=== PATIENT | male | born 1960 | race Caucasian/White ===

== ENCOUNTER 2017-10-08 10:01 | Inpatient (IN) | payer OTHER, SELFPAY ==
[2017-10-08 10:02] VITALS: BP 127/80; PULSE 99; RESP 16; TEMP 37; O2SAT 100; BMI 23.4
[2017-10-08] MEDS: 0.9% Normal Saline 1,000 ML 1000 ML IV ×2 (10:31→12:31)
[2017-10-08] MEDS: Ondansetron 4 MG/2 ML Vial IV ×3 (10:31→23:33)
[2017-10-08 10:55] LABS: Color, Urine Yellow (Yellow); Glucose, Dipstick Normal (Normal); Ketone-Dipstick 5 mg/dl (Negative); Leukocyte Esterase-Dipstick 25 /ul (Negative); Nitrite-Dipstick Negative (Negative); Occult Blood-Urine 250 /ul (Negative); Protein-Dipstick 30 mg/dl (Negative); Urine Bilirubin Dipstick Negative (Negative); Urine Clarity Sl. Cloudy (Clear); Urine Urobilinogen 1 mg/dl (Normal)
--- NOTE | 2017-10-08 10:57 | ED.VISSUMM ---
- ER Visit Summary Date of Service: 10/08/17 Chief Complaint: Abdominal pain with nausea, vomiting diarrhea that started last evening/early this morning History of Present Illness: The patient is a 57 M 3 of hypercholesterolemia status post laparoscopic robotic nerve sparing radical prostatectomy approximately 2 weeks ago presents because of abdominal pain that was followed by nausea, vomiting diarrhea. He was on Macrobid prior to procedure. He does report intermittent hematuria for the past couple of days. He denies hematemesis, melena hematochezia. He does report hot cold sensation with chills and sweats. No documented fever. He denies any redness or drainage from his port sites. Past medical history hypercholesterolemia and Alana acquired pneumonia. Past surgical history remarkable for recent laparoscopic robotic assisted nerve sparing radical prostatectomy. Physical Examination: Patient appears pale. Vital signs are remarkable for slight elevation blood pressure 127/80. HEENT exam is marked for dry tongue and mucosa. Heart is regular without murmur, gallop or rub. S1 and S2 are normal. Lungs are clear to auscultation with good movement of air bilaterally. Abdomen slightly distended tympanitic with decreased bowel sounds. All 5 port sites were examined without erythema, warmth, induration, fluctuance or drainage noted. He does have appropriate postoperative abdominal discomfort especially around the port sites. Neuro exam is nonfocal. Test Results: H&H 12.9 and 38.3. Glucose is 158 with a BUN of 24 creatinine 0.9. Macro urinalysis reveals leukoesterase and blood 25 and 250 and ketones 5. Micro reveals 5 WBCs greater than 100 RBCs and 3+ bacteria. UA analysis was discussed with patient's urologist. He recommended not giving antibiotics and await urine culture results since this may represent colonization from indwelling Lynn. Emergency Department Course and Treatment: IV was established and he will receive 1 L of normal saline wide open and 4 mg of Zofran. Once his nausea is improved will administer Imodium for his diarrhea. Since he was on Macrobid there is no concern at this point for drug-induced diarrhea and less likely concern for pseudomembranous enterocolitis. Treatment Plan: Since Dr. Jerez is unable to tolerate p.o. fluids and has not urinated after 2-3 L of normal saline will admit to hospital Disposition: Admit MedSurg unit Impression: 1. Nausea, vomiting diarrhea 2. Moderate to severe dehydration 3. Hyperglycemia 4. Prerenal azotemia This note was generated with eMindful dictation software. It may contain incorrect words, spelling, and punctuation that were not noted in review of the chart prior to signing ED Disposition - Plan for ED Patient: Chief Complaint: Nausea/Vomiting/Diarrhea Referrals: Lissy Mcmanus DO [Primary Care Provider] -
[2017-10-08 11:02] LABS: Red Blood Cells-Urine > 100 SEEN /hpf (0-5); White Blood Cells 0-5 SEEN /hpf (0-5)
[2017-10-08 11:02] LABS: Absolute Lymphocyte Count 0.56 X10^3/ul (0.83-4.51); Absolute Neutrophil Count 9.8 X10^3/uL (2.0-7.7); Basophil# 0.01 X10^3/uL; Basophil% 0.1 % (0-1); Hematocrit 38.3 % (40-54); Hemoglobin 12.9 g/dl (13.0-16.5); Lymphocyte # 0.56 X10^3/ul (4.0); Lymphocyte % 5.3 % (19-41); Mean Corp Hgb Conc 33.7 g/gl (32-36); Mean Corpuscular Hgb 29.3 pg (27.0-32.0); Mean Corpuscular Volume 86.8 fL (80-94); Mean Platelet Vol. 9.5 fl (6.2-12.0); Monocyte# 0.25 X10^3/uL; Monocyte% 2.4 % (0-10); Neutrophil # 9.75 X10^3/uL (2.7-7.7); Platelet Count 373 K/mm3 (150-450); RBC Distribution Width CV 13.5 % (11.6-14.6); RBC Distribution Width SD 43.1 fl (35.1-43.9); Red Blood Count 4.41 M/mm3 (4.6-6.2); White Blood Count 10.6 K/mm3 (4.4-11.0)
[2017-10-08 11:03] LABS: Bacteria 3+ /hpf (None Seen); Squamous Epithelial Cells - UA 0-5 SEEN /hpf (0-5)
[2017-10-08 11:03] LABS: Anion Gap 10 (5-15); BUN 24 mg/dL (7-18); BUN/Creat Ratio 26.5 RATIO (10-20); Calcium,Total 9.7 mg/dL (8.5-10.1); Chloride 104 mmol/L (98-107); EST Glomerular Filtration Rate 93 mL/min (>60); Est Glom Filt Rate - Afr Amer 112 mL/min (>60); Estimated Creatinine Clearance 92.74 ml/min; Glucose 158 mg/dL (74-106); Potassium 3.6 mmol/L (3.5-5.1); Sodium Level 138 mmol/L (136-145)
[2017-10-08 11:04] LABS: Differential Indicated SCAN CRITERIA MET; POSITIVE COUNT NO; POSITIVE DIFFERENTIAL YES; POSITIVE MORPHOLOGY NO
[2017-10-08 11:04] LABS: Mucous, Urine 2+ /hpf (<or=2+)
[2017-10-08 12:35] VITALS: BP 131/75; PULSE 87; RESP 14; O2SAT 99
[2017-10-08 14:00] VITALS: BP 128/72; PULSE 87; RESP 16; TEMP 37.5; O2SAT 100
[2017-10-08 14:23] VITALS: BMI 23.5
[2017-10-08 14:25] VITALS: BP 134/78; PULSE 72; RESP 15; TEMP 37.5; O2SAT 100
--- NOTE | 2017-10-08 14:42 | CT_ITS ---
STUDY: CT ABDOMEN AND PELVIS WITHOUT CONTRAST REASON FOR EXAM: Male, 57 years old. RADICAL PROSTECTOMY X 2 WKS AGO, SEVERE ABD PAIN, N/V, DEHYDRATION RADIATION DOSAGE (If Supplied By Facility): CTDIvol = ( 8.48 ) mGy, DLP = ( 478.74 ) mGycm TECHNIQUE: Transaxial images were obtained from the dome of the diaphragm to the symphysis pubis without oral contrast, and without intravenous contrast. Sagittal and coronal images were reconstructed. Individualized dose optimization techniques were used for this CT. COMPARISON: 07.21.17 FINDINGS: The visualized lung bases are unremarkable. The visualized portions of the heart are within normal limits. Normal liver. Normal gallbladder and extrahepatic biliary system. Normal spleen. Normal pancreas. Normal bilateral adrenal glands. Normal right kidney. Normal left kidney. Normal visualized stomach. There is a paralytic ileus of the small intestine with mild gaseous distention. There is wall thickening of the descending and rectosigmoid colon. There is also questionable inflammation around the colon. This can suggest a colitis. This can also suggest incomplete distension of the colon. The appendix is visualized and appears normal. Normal abdominal aorta. Normal inferior vena cava. Normal retroperitoneum. Normal urinary bladder. Absent prostate gland. Normal abdominal wall. There is endplate spondylosis of the vertebral body. CT/Abdomen/Pelvis without Cont IMPRESSION: Findings suggesting an ileus. There is wall thickening of the descending and rectosigmoid colon. There is also questionable inflammation around the colon. This can suggest a colitis. This can also suggest incomplete distension of the colon. Electronically Signed: Galdino Peralta MD at 16:16 EDT , Service support ,
[2017-10-08 14:48] VITALS: BMI 24.5
[2017-10-08 14:51] VITALS: BP 146/87; PULSE 93; RESP 16; TEMP 37.2; O2SAT 100
--- NOTE | 2017-10-08 14:56 | HP.PCM_ITS ---
Problem List (1) Status post radical prostatectomy Status: Acute (2) Severe dehydration Status: Acute (3) Intractable nausea and vomiting Status: Acute (4) Hypertension Status: Chronic (5) Ectopic atrial tachycardia Status: Chronic (6) Prostate cancer Status: Chronic History of Present Illness Date of Admission: 10/08/17 Chief Complaint: Nausea, vomiting diarrhea and abdominal pain. The patient is a 57 year old M with past medical history as mentioned above presented to the emergency room because of nausea, vomiting and diarrhea. Her symptoms started yesterday with intractable nausea and vomiting, associated with vague abdominal pain and poor appetite and was not able to keep anything down to his stomach. He described this abdominal pain as vague pain, dull aching, not too bad, aggravated by throwing up and without relieving factors and also associated with diarrhea and decreased urine output. He mentioned that he has been urinating less and less amount of urine and he has been having occasional small blood clots in his urine but not since yesterday. Has been having loose stool since yesterday without blood. He denies fever or chills. He had a recent laparoscopic robotic nerve sparing radical prostatectomy for prostate cancer Agustin score 6 that was done on September 22, 2017. After his surgery, he did fine until yesterday when he started having significant intractable nausea and vomiting with abdominal pain and diarrhea. Few days after the Lynn catheter taken out, he was given antibiotics for 3 days. He had a history of ectopic atrial tachycardia and he has been on Cardizem for a few years. Recently, his blood sugar has been elevated without history of diabetes and this is attributed to Decadron that he received during his recent prostate surgery. At the same time, his blood pressure has been high and he was started on lisinopril. According to the patient, his recent elevation of his blood pressure and blood sugar are attributed to recent diagnosis of cancer as well as recent surgery. In the emergency room, his vital signs were stable, was afebrile. His routine blood work was remarkable for hemoglobin of 12.9, BUN of 24 with normal creatinine. His urinalysis revealed cloudy urine, positive for occult blood, there was more than 100 RBCs and 0-5 WBCs, 3+ bacteria. He is being admitted for intractable nausea and vomiting, severe dehydration and acute diarrhea illness. Past Medical History Past Medical History (Chronic Problems): Chronic Problems Hypertension (Chronic) Ectopic atrial tachycardia (Chronic) Prostate cancer (Chronic) Allergies iodine Allergy (Verified 07/23/16 16:23) Rash Home Medications: Ambulatory Orders Medication Instructions Recorded Aspirin E.C. [Ecotrin] 81 mg PO DAILY@0800 05/29/15 Atorvastatin Calcium [Lipitor] 10 mg PO DAILY 05/29/15 Diltiazem CD [Cardizem CD] 240 mg PO DAILY 05/29/15 Lisinopril [Zestril] 10 mg PO DAILY 10/08/17 Tadalafil [Cialis] 5 mg PO DAILY 10/08/17 Surgical History: - - Prostatectomy. Psychiatric History: No pertinent psych hx Lives: Spouse/ Significant Other Smoking Status: Never smoker Alcohol: None Drugs: None - *Family History Maternal History Items: No pertinent history Paternal History Items: No pertinent history Review of Systems Constitutional: Reports: Anorexia, Weakness. Denies: Chills, Fever Eyes: Denies: Blurred vision, Double vision, Drainage, Redness HEENT: Denies: Difficulty Hearing, Ear Pain, Eye Pain, Nasal Congestion, Sore Throat Cardiovascular: Denies: Chest Pain, Chest Pressure, Edema, Heaviness, Light Headedness, Paroxysmal Noc. Dyspnea, Syncope Respiratory: Denies: Cough, Pleuritic Pain, Shortness of Breath, Sputum production, Wheezing Gastrointestinal: Reports: Abdominal Pain, Diarrhea, Nausea, Vomiting. Denies: Constipation, Hematochezia, Melena Genitourinary: Reports: Hematuria. Denies: Dysuria, Frequency Musculoskeletal: Denies: Arm Pain, Back Pain, Foot Pain Skin: Denies: Dryness, Rash Neurological: Denies: Balance problems, Double vision, Change in Speech, Slurred speech, Confusion, Focal weakness, Headaches, Incoordination Psychiatric: Denies: Anxiety, Depression Endocrine: Denies: Change in Body Habitus, Polydipsia VTE Information - Inpt Only VTE Present on Admission: No VTE Mechan Device Prophylaxis: SCD's VTE Pharm Prophylaxis ordered?: No Patient Problems: Active and Suspected Problems Status post radical prostatectomy (Acute) Severe dehydration (Acute) Intractable nausea and vomiting (Acute) - Physical Exam General: Alert, Oriented x3, Cooperative, No apparent distress HEENT: Atraumatic, PERRLA, EOMI Oral: No Gingival or Mucosal Lesions/ Ulcerations, Dry Mucosa - Mucous membranes are very dry. Neck: Supple, No JVD, Negative Carotid Bruits, Trachea Midline, Thyroid Normal Size and Texture Lungs: Clear to auscultation, Normal air movement, No rhonchi, No wheeze, No rales Cardiovascular: Regular rate, Regular Rhythm, Normal S1, Normal S2, No murmurs Abdomen: Bowel Sounds Present, Soft, Non Tender, Non-Distended, No Hepato- splenomegaly, Obese Extremities: No clubbing, No cyanosis, No edema Skin: No rashes, No breakdown Lymphatic: No Cervical, Supraclavicular, or Inguinal Adenopathy Neurological: Cranial nerves II-XII grossly intact, Motor Exam 5/5 strength throughout Psych/Mental Status: Normal Affect, Appropriate, Alert and oriented to time, place, person, mood and affect Vital Signs Temp Pulse Resp BP Pulse Ox 99.0 F 93 16 146/87 H 100 10/08/17 14:51 10/08/17 14:51 10/08/17 14:51 10/08/17 14:51 10/08/17 14:51 Oxygen Delivery Method Room Air Weight: 166 lb Body Mass Index (BMI) 24.5 Laboratory Tests 3 10/08/17 10/08/17 10/08/17 Range/Units 10:45 10:30 10:30 WBC 10.6 (4.4-11.0) K/mm3 RBC 4.41 L (4.6-6.2) M/mm3 Hgb 12.9 L (13.0-16.5) g/dl Hct 38.3 L (40-54) % MCV 86.8 (80-94) fL MCH 29.3 (27.0-32.0) pg MCHC 33.7 (32-36) g/gl RDW 13.5 (11.6-14.6) % RDW Differential 43.1 (35.1-43.9) fl Plt Count 373 (150-450) K/mm3 MPV 9.5 (6.2-12.0) fl Immature Gran % (Auto) 0.200 (0.0-0.9) % Neut % (Auto) 92.0 H (47-70) % Lymph % (Auto) 5.3 L (19-41) % [place] % (Auto) 2.4 (0-10) % Eos % (Auto) 0.0 (0-5) % Baso % (Auto) 0.1 (0-1) % Absolute Neuts (auto) 9.8 H (2.0-7.7) X10^3/uL Absolute Lymphs (auto) 0.56 L (0.83-4.51) X10^3/ul Total Counted Not Reportable Differential Comment COMMENT Sodium 138 (136-145) mmol/L Potassium 3.6 (3.5-5.1) mmol/L Chloride 104 (98-107) mmol/L Carbon Dioxide 24.0 (21.0-32.0) mmol/L Anion Gap 10 (5-15) BUN 24 H (7-18) mg/dL Creatinine 0.90 (0.70-1.30) mg/dL Estim Creat Clear Calc 92.74 ml/min Est GFR (MDRD) Af Amer 112 (>60) mL/min Est GFR (MDRD) Non-Af 93 (>60) mL/min BUN/Creatinine Ratio 26.5 H (10-20) RATIO Glucose 158 H (74-106) mg/dL Calcium 9.7 (8.5-10.1) mg/dL Urine Color Yellow (Yellow) Urine Clarity Sl. Cloudy (Clear) Urine pH 8.0 (5.0 - 8.0) Ur Specific [place] 1.010 (1.002-1.030) Urine Protein 30 H (Negative) mg/dl Urine Glucose (UA) Normal (Normal) mg/dl Urine Ketones 5 H (Negative) mg/dl Urine Occult Blood 250 H (Negative) /ul Urine Nitrite Negative (Negative) Urine Bilirubin Negative (Negative) mg/dL Urine Urobilinogen 1 H (Normal) mg/dl Ur Leukocyte Esterase 25 H (Negative) /ul Urine RBC > 100 SEEN (0-5) /hpf Urine WBC 0-5 SEEN (0-5) /hpf Ur Squamous Epith Cells 0-5 SEEN (0-5) /hpf Urine Bacteria 3+ (None Seen) /hpf Urine Mucus 2+ (<or=2+) /hpf Assessment/Plan Active and Suspected Problems Status post radical prostatectomy (Acute) Severe dehydration (Acute) Intractable nausea and vomiting (Acute) This is a 57 years old male patient presented to the emergency room because of intractable nausea and vomiting, abdominal pain and diarrhea in context of recent history of a radical prostatectomy for prostate cancer and he was found to have severe dehydration. #1 intractable nausea and vomiting/abdominal pain: Probably due to acute viral gastroenteritis, other etiology such as C. difficile cannot be ruled out. Patient had recent surgery and he has been on antibiotics. Clinically, he is severely dehydrated. Plan: Admit to MedSurg floor, clear liquids, IV fluids, IV antiemetics with IV Zofran and Phenergan as needed, electrolyte replacement as appropriate, check serum magnesium, CT scan abdomen and pelvis without contrast. #2 acute diarrheal illness: In context of recent history of antibiotic use. Plan for IV fluids above, stool for C. difficile, stool for enteric pathogens, IV fluids, repeat CBC and BMP tomorrow morning. #3 status post recent laparoscopic radical prostatectomy: This was done on September 22, 2017. After surgery, patient did fine until yesterday. His surgeon was contacted by the ER physician and he is aware about this admission. Urinalysis reviewed, doubt acute cystitis or UTI. Plan for urine culture, no indication for IV antibiotics. #4 hypertension: This is a recent diagnosis since patient was diagnosed with prostate cancer and went for surgery. He has been on lisinopril. Blood pressure stable, continue lisinopril. #5 hyperglycemia: Again, this is recent and has been going on since patient had his surgery and was given Decadron. Never been diagnosed with diabetes. Plan: Accu-Cheks, insulin sliding scale. #6 ectopic atrial tachycardia: Heart rate stable, continue Cardizem. #7 DVT prophylaxis: SCDs. This note was generated with [employer] dictation software. It may contain incorrect words, spelling, and punctuation that were not noted in checking the note before signing. Code Visit Inpatient E&M: 43973 Init Hosp L3
[2017-10-08] MEDS: 0.9% Normal Saline 1,000 ML 100 ML IV (16:37)
[2017-10-08] MEDS: 0.9% NaCl Peripheral Flush Adult/Peds IV (16:37)
[2017-10-08 16:45] LABS: Bedside Glucose 122 mg/dL (70-110)
[2017-10-08 18:52] LABS: Magnesium 2.4 mg/dL (1.6-2.6)
[2017-10-08 21:10] VITALS: BP 146/86; PULSE 80; RESP 16; TEMP 37; O2SAT 98
[2017-10-08 21:20] LABS: Bedside Glucose 110 mg/dL (70-110)
[2017-10-09] MEDS: 0.9% Normal Saline 1,000 ML 100 ML IV (02:51)
[2017-10-09 02:58] VITALS: BP 123/72; PULSE 74; RESP 16; TEMP 36.8; O2SAT 94
[2017-10-09] MEDS: 0.9% NaCl Peripheral Flush Adult/Peds IV ×3 (03:08→19:38)
[2017-10-09 06:40] LABS: Bedside Glucose 100 mg/dL (70-110)
[2017-10-09 06:57] LABS: Basophil# 0.03 X10^3/uL; Basophil% 0.3 % (0-1); Eosinophil# 0.07 X10^3/uL; Eosinophils% 0.8 % (0-5); Hematocrit 32.9 % (40-54); Hemoglobin 10.9 g/dl (13.0-16.5); Lymphocyte % 19.9 % (19-41); Mean Corp Hgb Conc 33.1 g/gl (32-36); Mean Corpuscular Hgb 29.5 pg (27.0-32.0); Mean Corpuscular Volume 88.9 fL (80-94); Mean Platelet Vol. 9.1 fl (6.2-12.0); Monocyte# 1.17 X10^3/uL; Monocyte% 12.9 % (0-10); Neutrophil # 5.98 X10^3/uL (2.7-7.7); Platelet Count 320 K/mm3 (150-450); RBC Distribution Width CV 13.5 % (11.6-14.6); RBC Distribution Width SD 42.5 fl (35.1-43.9); White Blood Count 9.1 K/mm3 (4.4-11.0)
[2017-10-09 07:06] LABS: POSITIVE COUNT NO; POSITIVE DIFFERENTIAL NO; POSITIVE MORPHOLOGY NO
[2017-10-09 07:17] LABS: Anion Gap 8 (5-15); BUN 15 mg/dL (7-18); BUN/Creat Ratio 25.6 RATIO (10-20); Calcium,Total 7.7 mg/dL (8.5-10.1); Chloride 112 mmol/L (98-107); Creatinine, Serum 0.59 mg/dL (0.70-1.30); EST Glomerular Filtration Rate 152 mL/min (>60); Est Glom Filt Rate - Afr Amer 184 mL/min (>60); Estimated Creatinine Clearance 141.47 ml/min; Glucose 97 mg/dL (74-106); Potassium 3.9 mmol/L (3.5-5.1); Sodium Level 142 mmol/L (136-145)
[2017-10-09 09:00] VITALS: BP 122/81; PULSE 66; RESP 16; TEMP 36.8; O2SAT 96
[2017-10-09] MEDS: dilTIAZem CD 240 MG Capsule PO (09:03)
[2017-10-09] MEDS: Lisinopril 10 MG Tablet PO (09:03)
--- NOTE | 2017-10-09 12:39 | PCM.PROGNOTE ---
Patient Problems: Active and Suspected Problems Status post radical prostatectomy (Acute) Severe dehydration (Acute) Intractable nausea and vomiting (Acute) Subjective: 57 YO male with hx of ectopic atrial tachycardia, hypertension and Prostate CA with recent robotic assisted radical prostatectomy on 09/22/17 who presented to the ED on 10/08/17 c/o abdominal pain and distension, nausea and vomiting and decreased appetite. He had been doing well post operatively until yesterday. denies fevers and chills. Emesis is not feculent. CT of the abd and pelvis showed Ileus. The white blood cell count was 10.6 with 92% neutrophils. Hemoglobin was 12.9 and the platelet count was 373,000. BUN was increased at 24 with a creatinine of 0.9 and a BUN/creatinine ratio of 26. A random blood sugar was 158. Hemoglobin A1c was 5.2. Urine showed greater than 100 RBCs with only 0-5 WBCs. He was admitted to the hospital with a diagnosis of dehydration and ileus. Continues to have nausea but has not had any emesis this AM. Continues to have liquid bowel movements but frequency has decreased. The abdomen remains distended and diffusely tender to palpation. He is afebrile. White blood cell count today is 9.1 with a normal differential and I suspect the increased neutrophil count and elevated white blood cell count at admission were secondary to stress. BUN is down to 15 and the creatinine is 0.59 following hydration. - Physical Exam General: Alert, Oriented x3, Cooperative, - - He looks very fatigued and sick HEENT: Atraumatic, PERRLA, EOMI, Normocephalic Oral: No Gingival or Mucosal Lesions/ Ulcerations, Dry Mucosa Neck: Supple, No JVD, No Nodes, Trachea Midline Lungs: Clear to auscultation, No rhonchi, No wheeze, No rales Cardiovascular: Regular rate, Regular Rhythm, Normal S1, Normal S2, No murmurs, No rub noted, No Gallop Abdomen: No Hepato-splenomegaly, Hypoactive Bowel Sounds, Distended - with palpable loops of bowel, Tender - diffusely tender to palpation, - - tympanic Extremities: No clubbing, No cyanosis, No edema, No Calf Tenderness, Peripheral Pulses Normal Skin: No rashes, No breakdown Musculoskeletal: No Muscle Wasting Neurological: Cranial nerves II-XII grossly intact, Neuro grossly intact Psych/Mental Status: Appropriate, Flat Affect Vital Signs Temp Pulse Resp BP Pulse Ox 98.2 F 66 16 122/81 H 96 10/09/17 09:00 10/09/17 09:00 10/09/17 09:00 10/09/17 09:00 10/09/17 09:00 Oxygen Delivery Method Room Air Weight: 165 lb 15.988 oz Body Mass Index (BMI) 24.5 Intake and Output for Last 24 Hours 10/07/17 10/08/17 10/09/17 23:59 23:59 23:59 Intake Total 757 / 757 1396 / 1396 Output Total 550 / 550 375 / 375 Balance 207 / 207 1021 / 1021 Microbiology Past 72 Hours 10/08/17 20:15 Enteric Bacteriology - Final Stool 10/08/17 20:15 C. difficile DNA Amplification - Final Stool Laboratory Tests Past 24 Hrs 10/09/17 10/09/17 06:45 06:45 WBC 9.1 RBC 3.70 L Hgb 10.9 L Hct 32.9 L MCV 88.9 MCH 29.5 MCHC 33.1 RDW 13.5 RDW Differential 42.5 Plt Count 320 MPV 9.1 Immature Gran % (Auto) 0.100 Neut % (Auto) 66.0 Lymph % (Auto) 19.9 [place] % (Auto) 12.9 H Eos % (Auto) 0.8 Baso % (Auto) 0.3 Absolute Neuts (auto) 6.0 Absolute Lymphs (auto) 1.80 Total Counted Not Reportable Sodium 142 Potassium 3.9 Chloride 112 H Carbon Dioxide 22.0 Anion Gap 8 BUN 15 Creatinine 0.59 L Estim Creat Clear Calc 141.47 Est GFR (MDRD) Af Amer 184 Est GFR (MDRD) Non-Af 152 BUN/Creatinine Ratio 25.6 H Glucose 97 Calcium 7.7 L POC Glucose 10/09/17 10/08/17 10/08/17 06:32 21:04 16:39 POC Glucose 100 110 122 H Assessment/Plan Active and Suspected Problems Status post radical prostatectomy (Acute) Severe dehydration (Acute) Intractable nausea and vomiting (Acute) Impressions 1. N/V/D with ileus on CT scan of the abd and pelvis. C.diff and enteric pathogen panel are negative. 2. Dehydration 3. Prostate CA Agustin 6 with recent robotic assisted radical prostatectomy on 09/22/2017 4. History of ectopic atrial tachycardia -controlled with Cardizem 5. HTN 6. Hyperglycemia-likely secondary to stress, hemoglobin A1c is 5.2 7. Insomnia 8. Normochromic normocytic anemia likely secondary to recent blood loss from radical prostatectomy 1 L normal saline bolus over the next hour Change the IV fluid to 0.45% saline and increase the rate to 150 cc an hour Discontinue Zofran and increase Phenergan to 12.5 mg IV every 4 hours as needed nausea Pain medication has been ordered as needed Acute abdominal series in the a.m. Recheck lab in the a.m. Discontinue Accu-Cheks Start Lovenox 40 mg subcu daily for DVT prophylaxis and continue SCDs Encouraged to ambulate Trazodone 50-100 mg p.o. nightly to assist with insomnia.
[2017-10-09 13:25] LABS: Hemoglobin A1c 5.2 % (4.2-6.3)
[2017-10-09] MEDS: 0.9% Normal Saline 1,000 ML 999 ML IV (13:31)
[2017-10-09] MEDS: Enoxaparin 40 MG/0.4 ML Syringe SC (13:31)
[2017-10-09] MEDS: 0.45% Normal Saline 1,000 ML 150 ML IV ×2 (14:39→21:07)
[2017-10-09 15:00] VITALS: BP 142/80; PULSE 73; RESP 16; TEMP 37.1; O2SAT 99
--- NOTE | 2017-10-09 15:14 | CASEMGMT ---
Chart review completed by this RN CHRISTINA at this time. Therapy recommends home and states no concerns at this time. Yoko NORMAN aware to notify CM if any concerns with pt present at any time, voices understanding. Marjorie NORMAN CM
[2017-10-09 20:58] VITALS: BP 130/75; PULSE 66; RESP 14; TEMP 37; O2SAT 98
[2017-10-09] MEDS: traZODone 50 MG Tablet PO (21:01)
[2017-10-10 02:56] VITALS: BP 105/53; PULSE 60; RESP 14; TEMP 36.8; O2SAT 95
[2017-10-10] MEDS: Enoxaparin 40 MG/0.4 ML Syringe SC (06:18)
[2017-10-10] MEDS: 0.45% Normal Saline 1,000 ML 150 ML IV ×3 (06:18→17:42)
[2017-10-10 08:15] VITALS: PULSE 64
[2017-10-10 08:26] VITALS: BP 121/72; PULSE 68; RESP 18; TEMP 36.8; O2SAT 96
--- NOTE | 2017-10-10 08:47 | PN_ITS ---
Patient Problems: Active and Suspected Problems Status post radical prostatectomy (Acute) Severe dehydration (Acute) Intractable nausea and vomiting (Acute) Subjective: Afebrile for the past 24 hours. Vital signs are stable. Pulse ox has ranged from 95-98% on room air. Heart rate is in the 60s. Oral intake on 10/09/2017 was 480 cc. He has not required any antiemetics since last night. He continues to pass flatus and have liquid stool. He remains afebrile with stable vital signs. All lab was personally reviewed. White blood cell count today is 5.5 with an unremarkable differential. Hemoglobin is 11.3 and platelets are normal. Electrolytes are within normal limits and the BUN is down to 6 with a creatinine of 0.81. Hemoglobin A1c was 5.2% and Accu-Cheks have been discontinued. He tells me that he is urinating every 2-3 hours now and his urine is clear without clots. Acute abdominal series today shows extensive ileus with no evidence of small bowel obstruction. Distended loops of bowel are more in the upper abdomen. He looks better today and has better color in his face. He looks less fatigued. He had no adverse side effects with the trazodone last night. He states he feels better today. Abdominal pain is definitely decreasing. - Physical Exam General: Alert, Oriented x3, Cooperative HEENT: Normocephalic Oral: Dry Mucosa Neck: Supple, No Nodes, Trachea Midline Lungs: Clear to auscultation, No rhonchi, No wheeze, No rales Cardiovascular: Regular rate, Regular Rhythm, Normal S1, Normal S2, No murmurs, No Gallop Abdomen: Bowel Sounds Present - he has much better BS's today and in fact they border on Hyperactive. BS's were hypoactive yesterday., Soft, Distended - and tympanic but, less distended since yeaster., Tender - minimal and no guarding Extremities: No clubbing, No cyanosis, No edema, No Calf Tenderness Skin: No rashes, No breakdown Neurological: Cranial nerves II-XII grossly intact, Neuro grossly intact Psych/Mental Status: Normal Affect, Appropriate Vital Signs Temp Pulse Resp BP Pulse Ox 98.2 F 68 18 121/72 H 96 10/10/17 08:26 10/10/17 08:26 10/10/17 08:26 10/10/17 08:26 10/10/17 08:26 Oxygen Delivery Method Room Air Weight: 165 lb 15.988 oz Body Mass Index (BMI) 24.5 Intake and Output for Last 24 Hours 10/08/17 10/09/17 10/10/17 23:59 23:59 23:59 Intake Total 757 / 757 4476 / 4476 1013 / 1013 Output Total 550 / 550 375 / 375 Balance 207 / 207 4101 / 4101 1013 / 1013 Microbiology Past 72 Hours 10/08/17 20:15 Enteric Bacteriology - Final Stool 10/08/17 20:15 C. difficile DNA Amplification - Final Stool Laboratory Tests Past 24 Hrs 10/09/17 06:45 Hemoglobin A1c 5.2 Medical Necessity - Tobacco Use Smoking Status: Never smoker Tobacco Use: Non-smoker Assessment/Plan Active and Suspected Problems Status post radical prostatectomy (Acute) Severe dehydration (Acute) Intractable nausea and vomiting (Acute) Impressions 1. N/V/D with ileus on CT scan of the abd and pelvis. C.diff and enteric pathogen panel are negative. AA series today with ileus and still quite impressive dilated gaseous loops of bowel. 2. Dehydration - improving 3. Prostate CA [place] 6 with recent robotic assisted radical prostatectomy on 09/22/2017 4. History of ectopic atrial tachycardia -controlled with Cardizem 5. HTN 6. Hyperglycemia-likely secondary to stress, hemoglobin A1c is 5.2 7. Insomnia 8. Normochromic normocytic anemia likely secondary to recent blood loss from radical prostatectomy Check an amylase and lipase, the glucose and ova and parasites in the stool. Continue IV fluids continue clear liquids He will continue to ambulate frequently Consult Dr. Wesly Lopez to participate in management since the ileus has been going on for at least 48 hours and he had recent surgery. Continue anti-emetics as needed
--- NOTE | 2017-10-10 09:31 | RAD_ITS ---
STUDY: X-RAY - ACUTE ABDOMINAL SERIES REASON FOR EXAM: Male, 57 years old. Vomiting diarrhea TECHNIQUE: Single view of the chest. Supine, and erect view(s) of the abdomen were obtained. COMPARISON: October 08, 2017 CT scan abdomen and pelvis FINDINGS: The lungs are clear and expanded. Normal size heart. Normal mediastinum and vniod. Normal visualized pulmonary arteries. Normal visualized aortic arch and descending thoracic aorta. There is a mildly distended gassy appearance of the colon and a few loops of centrally located small bowel with lesser caliber. The soft tissue structures of the abdomen and pelvis are unremarkable. Normal visualized osseous structures. RAD/Acute Abdomen Inc Chest IMPRESSION: Radiographic pattern consistent with ileus. With correlation with CT October 08, 2017 CT scan abdomen and pelvis Consider gastroenteritis No evidence of acute focal infiltrate. Electronically Signed: Amy Centeno MD at 9:55 EDT Tel , Service support ,
[2017-10-10] MEDS: dilTIAZem CD 240 MG Capsule PO (09:53)
[2017-10-10] MEDS: Lisinopril 10 MG Tablet PO (09:53)
[2017-10-10 10:10] LABS: Absolute Lymphocyte Count 1.29 X10^3/ul (0.83-4.51); Absolute Neutrophil Count 3.3 X10^3/uL (2.0-7.7); Basophil# 0.02 X10^3/uL; Basophil% 0.4 % (0-1); Eosinophil# 0.09 X10^3/uL; Eosinophils% 1.6 % (0-5); Hematocrit 34.7 % (40-54); Hemoglobin 11.3 g/dl (13.0-16.5); Lymphocyte # 1.29 X10^3/ul (4.0); Lymphocyte % 23.5 % (19-41); Mean Corp Hgb Conc 32.6 g/gl (32-36); Mean Corpuscular Hgb 28.9 pg (27.0-32.0); Mean Corpuscular Volume 88.7 fL (80-94); Mean Platelet Vol. 9.3 fl (6.2-12.0); Monocyte# 0.77 X10^3/uL; Neutrophil # 3.33 X10^3/uL (2.7-7.7); Neutrophil % 60.5 % (47-70); Platelet Count 274 K/mm3 (150-450); RBC Distribution Width CV 13.5 % (11.6-14.6); Red Blood Count 3.91 M/mm3 (4.6-6.2); White Blood Count 5.5 K/mm3 (4.4-11.0)
[2017-10-10 10:11] LABS: POSITIVE COUNT NO; POSITIVE DIFFERENTIAL NO; POSITIVE MORPHOLOGY NO
[2017-10-10 10:25] LABS: AST(SGOT) 15 U/L (15-37); Alanine Aminotransfer ALT/SGPT 29 U/L (16-61); Albumin, Serum 3.2 g/dL (3.2-5.0); Alkaline Phosphatase 61 U/L (45-117); Anion Gap 8 (5-15); BUN 6 mg/dL (7-18); BUN/Creat Ratio 7.4 RATIO (10-20); Calcium,Total 8.3 mg/dL (8.5-10.1); Chloride 109 mmol/L (98-107); Creatinine, Serum 0.81 mg/dL (0.70-1.30); EST Glomerular Filtration Rate 105 mL/min (>60); Est Glom Filt Rate - Afr Amer 127 mL/min (>60); Estimated Creatinine Clearance 103.04 ml/min; Globulin 3.2 g/dL (2.2-4.2); Glucose 118 mg/dL (74-106); Magnesium 2.2 mg/dL (1.6-2.6); Potassium 3.6 mmol/L (3.5-5.1); Protein, Total 6.4 g/dL (6.4-8.2); Sodium Level 141 mmol/L (136-145)
[2017-10-10 11:12] LABS: Amylase 41 U/L (25-115); Lipase 101 U/L (73-393)
--- NOTE | 2017-10-10 13:08 | CON.PCM_ITS ---
Problem List (1) Diarrhea Status: Acute Qualifiers: Diarrhea type: unspecified type Qualified Code(s): R19.7 - Diarrhea, unspecified Reason for Consult Date of Consultation: 10/10/17 History of Present Illness: The patient is a 57 year old M who was admitted to [facility] on October 08 2017. He had been awakened at sleep with abdominal pain, nausea vomiting, watery diarrhea. He is status post a robotic radical prostatectomy September 22, 2017 Performed in [facility]. He initially did well. The catheter was removed after 1 week. One day prior to cath removal the day of catheter removal in the day subsequent catheter removal he was placed on Macrodantin. Otherwise by his report he had had the traditional perioperative antibiotics. He continues to be progressing well at home. Was increasing his activity and walking. He has been urinating with some slight blood tinged urine but that was improving. He had not been around anyone ill. There not been any unusual food ingestion. On his presentation he was noted to be dehydrated with a BUN of 24 and a creatinine 0.9. White blood cell count was 10.6 with a hemoglobin 12.9 and hematocrit 38.3. His urinalysis was noted to be yellow slightly cloudy. Urine protein was 30. Urine ketones 5. Urine occult blood 250. Urine urobilinogen 1. Leukocyte esterase 25. Greater than 100 RBCs. 0-5 white cells. 3+ bacteria. Urine culture however is no growth. C. difficile that was done was negative. Stool for enteric pathogens was negative. Since his presentation he has been hydrated. He is feeling improved. He still notes abdominal distention. He is still having watery diarrhea. A CT scan without contrast on presentation demonstrated paralytic ileus of the small intestine. Questionable wall thickening of the descending and rectosigmoid colon. Abdominal x-rays that were obtained today consistent with an ileus pattern. Radiologist offering was to consider gastroenteritis. The patient has had a previous colonoscopy in [address] Papa Shelley. The patient has had previous history of small colon polyps believes he had a couple polyps at that time. He has had no personal history of colon malignancy. There is no family history of colon cancer or inflammatory bowel disease. She does not recall any history of diverticular disease. He currently is tolerating clear liquids. He is ambulating well. He did receive pharmacologic DVT prophylaxis at the time of his surgery. He resumes wearing his compression stockings. He has been afebrile throughout his hospital stay. Blood pressure currently normal. I have been asked by Dr. Caitlin Jack to provide surgical consultation on Dr. Jerez and a written copy of my communication will be present in his electronic charting. Past Medical History Past Medical History (Chronic Problems): Chronic Problems Hypertension (Chronic) Ectopic atrial tachycardia (Chronic) Prostate cancer (Chronic) Allergies iodine Allergy (Verified 07/23/16 16:23) Rash Home Medications: Ambulatory Orders Medication Instructions Recorded Aspirin E.C. [Ecotrin] 81 mg PO DAILY@0800 05/29/15 Atorvastatin Calcium [Lipitor] 10 mg PO DAILY 05/29/15 Diltiazem CD [Cardizem CD] 240 mg PO DAILY 05/29/15 Lisinopril [Zestril] 10 mg PO DAILY 10/08/17 Tadalafil [Cialis] 5 mg PO DAILY 10/08/17 Surgical History: - - Prostatectomy. Psychiatric History: No pertinent psych hx Lives: Spouse/ Significant Other Smoking Status: Never smoker Tobacco Use: Non-smoker Alcohol: None Drugs: None - *Family History Maternal History Items: No pertinent history Paternal History Items: No pertinent history Review of Systems Constitutional: Reports: - - Appetite is returning. Denies: Fever HEENT: Denies: Difficulty Swallowing Cardiovascular: Denies: Chest Pain, Claudication Respiratory: Denies: Shortness of Breath Gastrointestinal: Reports: Abdominal Pain, Diarrhea, Vomiting Genitourinary: Reports: - - sl. hematuria, improving Musculoskeletal: Reports: - - right groin parthesias, pain; improving Neurological: Denies: Focal weakness Psychiatric: Denies: Anxiety Patient Problems: Active and Suspected Problems Diarrhea (Acute) Status post radical prostatectomy (Acute) Severe dehydration (Acute) Intractable nausea and vomiting (Acute) - Physical Exam General: Alert, Oriented x3, Cooperative, No apparent distress HEENT: Atraumatic Oral: Moist Mucosa Neck: Supple Lungs: Clear to auscultation Cardiovascular: Regular rate Abdomen: Bowel Sounds Present, Soft, Non Tender, Distended, - - Healing laparoscopic port site incisions, clean with no erythema, surgical glue in place Extremities: No clubbing, No Calf Tenderness Skin: No rashes Psych/Mental Status: Normal Affect Vital Signs Temp Pulse Resp BP Pulse Ox 98.2 F 68 18 121/72 H 96 10/10/17 08:26 10/10/17 08:26 10/10/17 08:26 10/10/17 08:26 10/10/17 08:26 Oxygen Delivery Method Room Air Weight: 165 lb 15.988 oz Body Mass Index (BMI) 24.5 Intake and Output for Last 24 Hours 10/08/17 10/09/17 10/10/17 23:59 23:59 23:59 Intake Total 757 / 757 4476 / 4476 1713 / 1713 Output Total 550 / 550 375 / 375 Balance 207 / 207 4101 / 4101 1713 / 1713 Microbiology Past 72 Hours 10/08/17 20:15 Enteric Bacteriology - Final Stool 10/08/17 20:15 C. difficile DNA Amplification - Final Stool Laboratory Tests Past 24 Hrs 10/09/17 10/10/17 10/10/17 06:45 09:45 09:45 WBC 5.5 RBC 3.91 L Hgb 11.3 L Hct 34.7 L MCV 88.7 MCH 28.9 MCHC 32.6 RDW 13.5 RDW Differential 44.0 H Plt Count 274 MPV 9.3 Immature Gran % (Auto) 0.000 Neut % (Auto) 60.5 Lymph % (Auto) 23.5 [place] % (Auto) 14.0 H Eos % (Auto) 1.6 Baso % (Auto) 0.4 Absolute Neuts (auto) 3.3 Absolute Lymphs (auto) 1.29 Total Counted Not Reportable Sodium 141 Potassium 3.6 Chloride 109 H Carbon Dioxide 24.0 Anion Gap 8 BUN 6 L Creatinine 0.81 Estim Creat Clear Calc 103.04 Est GFR (MDRD) Af Amer 127 Est GFR (MDRD) Non-Af 105 BUN/Creatinine Ratio 7.4 L Glucose 118 H Hemoglobin A1c 5.2 Calcium 8.3 L Magnesium 2.2 Total Bilirubin 1.20 H AST 15 ALT 29 Alkaline Phosphatase 61 Total Protein 6.4 Albumin 3.2 Globulin 3.2 Albumin/Globulin Ratio 1.0 Amylase Lipase 10/10/17 09:45 WBC RBC Hgb Hct MCV MCH MCHC RDW RDW Differential Plt Count MPV Immature Gran % (Auto) Neut % (Auto) Lymph % (Auto) [place] % (Auto) Eos % (Auto) Baso % (Auto) Absolute Neuts (auto) Absolute Lymphs (auto) Total Counted Sodium Potassium Chloride Carbon Dioxide Anion Gap BUN Creatinine Estim Creat Clear Calc Est GFR (MDRD) Af Amer Est GFR (MDRD) Non-Af BUN/Creatinine Ratio Glucose Hemoglobin A1c Calcium Magnesium Total Bilirubin AST ALT Alkaline Phosphatase Total Protein Albumin Globulin Albumin/Globulin Ratio Amylase 41 Lipase 101 Assessment/Plan Active and Suspected Problems Diarrhea (Acute) Status post radical prostatectomy (Acute) Severe dehydration (Acute) Intractable nausea and vomiting (Acute) I have personally reviewed Dr. Jerez's abdominal x-rays CT scan and laboratory. I believe the findings are consistent with an ileus. All means of measurement appear to be improving. Certainly this could simply be a viral enteritis with complicating ileus. He does not have acute surgical abdomen at the moment. My other potential question as to whether he possibly could have a urine leak. The noncontrasted CT did not show any free fluid. Certainly his urine was suspicious for possible infection but cultures are no growth. So far stool analysis also has been unremarkable. I will follow with you. We will recheck a stool for C. difficile. If he continues to improve then no intervention will be required. If he fails to improve then I would consider a contrasted CT scan. He might also be a candidate for at least a flexible sigmoidoscopy or limited colonoscopy at least to the transverse colon to treat the ileus as well as to inspect the sigmoid and rectosigmoid. At this point however I would prefer not to perform any manipulations if not required. I appreciate the opportunity of assisting with his surgical care Wesly Lopez M.D., F.A.C.S.
[2017-10-10 15:15] VITALS: BP 122/72; PULSE 60; RESP 18; TEMP 37.1; O2SAT 99
[2017-10-10 16:20] VITALS: O2SAT 99
[2017-10-10 21:01] VITALS: BP 129/77; PULSE 67; RESP 16; TEMP 36.9; O2SAT 99
[2017-10-10] MEDS: traZODone 50 MG Tablet PO (21:18)
[2017-10-11] MEDS: 0.45% Normal Saline 1,000 ML 150 ML IV (00:10)
[2017-10-11 03:00] VITALS: BP 107/63; PULSE 62; RESP 16; TEMP 36.8; O2SAT 94
--- NOTE | 2017-10-11 06:31 | PCM.PN.SRG ---
Patient Problems: Active and Suspected Problems Diarrhea (Acute) Status post radical prostatectomy (Acute) Severe dehydration (Acute) Intractable nausea and vomiting (Acute) Subjective: Pt is tolerating clears He has had significant flatus late yesterday and overnight--feels less distended New meds were the 3 days of macrodantin and daily stool softener and cialis - Physical Exam Abdomen: Bowel Sounds Present, Soft, Non Tender Vital Signs Temp Pulse Resp BP Pulse Ox 98.3 F 62 16 107/63 94 10/11/17 03:00 10/11/17 03:00 10/11/17 03:00 10/11/17 03:00 10/11/17 03:00 Oxygen Delivery Method Room Air Weight: 165 lb 15.988 oz Body Mass Index (BMI) 24.5 Intake and Output for Last 24 Hours 10/09/17 10/10/17 10/11/17 23:59 23:59 23:59 Intake Total 4476 / 4476 4515 / 4515 Output Total 375 / 375 Balance 4101 / 4101 4515 / 4515 Microbiology Past 72 Hours 10/10/17 13:00 C. difficile DNA Amplification - Final Stool 10/10/17 13:00 Stool Lactoferrin - Final Stool 10/08/17 20:15 Enteric Bacteriology - Final Stool 10/08/17 20:15 C. difficile DNA Amplification - Final Stool Laboratory Tests Past 24 Hrs 10/10/17 10/10/17 10/10/17 09:45 09:45 09:45 WBC 5.5 RBC 3.91 L Hgb 11.3 L Hct 34.7 L MCV 88.7 MCH 28.9 MCHC 32.6 RDW 13.5 RDW Differential 44.0 H Plt Count 274 MPV 9.3 Immature Gran % (Auto) 0.000 Neut % (Auto) 60.5 Lymph % (Auto) 23.5 [place] % (Auto) 14.0 H Eos % (Auto) 1.6 Baso % (Auto) 0.4 Absolute Neuts (auto) 3.3 Absolute Lymphs (auto) 1.29 Total Counted Not Reportable Sodium 141 Potassium 3.6 Chloride 109 H Carbon Dioxide 24.0 Anion Gap 8 BUN 6 L Creatinine 0.81 Estim Creat Clear Calc 103.04 Est GFR (MDRD) Af Amer 127 Est GFR (MDRD) Non-Af 105 BUN/Creatinine Ratio 7.4 L Glucose 118 H Calcium 8.3 L Magnesium 2.2 Total Bilirubin 1.20 H AST 15 ALT 29 Alkaline Phosphatase 61 Total Protein 6.4 Albumin 3.2 Globulin 3.2 Albumin/Globulin Ratio 1.0 Amylase 41 Lipase 101 Medical Necessity - Tobacco Use Smoking Status: Never smoker Tobacco Use: Non-smoker Assessment/Plan Active and Suspected Problems Diarrhea (Acute) Status post radical prostatectomy (Acute) Severe dehydration (Acute) Intractable nausea and vomiting (Acute) Repeat cdiff is negative No fecal leukocytes Ileus is resolving with much improved clinical exam Will advance diet. Hopeful home soon Perhaps the daily stool softener might need adjustment--would consider holding I am not planning any further xrays or tests unless he fails to completely resolve. Then, as noted yesterday, might consider a contrasted CT and/or flex sig.
[2017-10-11] MEDS: Enoxaparin 40 MG/0.4 ML Syringe SC (06:41)
[2017-10-11] MEDS: 0.45% Normal Saline 1,000 ML 100 ML IV ×2 (06:43→18:57)
[2017-10-11 08:01] VITALS: O2SAT 98
[2017-10-11 09:41] VITALS: BP 127/65; PULSE 63; RESP 16; TEMP 36.7; O2SAT 100
[2017-10-11] MEDS: dilTIAZem CD 240 MG Capsule PO (09:54)
[2017-10-11] MEDS: Lisinopril 10 MG Tablet PO (09:55)
[2017-10-11 15:16] VITALS: BP 125/74; PULSE 62; RESP 16; TEMP 36.7; O2SAT 98
--- NOTE | 2017-10-11 19:20 | PCM.PROGNOTE ---
Patient Problems: Active and Suspected Problems Diarrhea (Acute) Status post radical prostatectomy (Acute) Severe dehydration (Acute) Intractable nausea and vomiting (Acute) Subjective: Afebrile. Vital signs are stable. Heart rate is in the 60s. He is 98-100% saturated on room air. Has had 4 BM's today...still loose. Has not required and antiemetic since 10/09 in the evening. he has been ambulating several times a day. No emesis. Diet was advanced to full liquids and he is tolerating this well. Oral intake is significantly increased over the preceding few days. Still has mild abdominal tenderness but there is less distention. He is passing flatus in addition to having loose bowels. He has an occasional clot in his urine but denies any dysuria. - Physical Exam General: Alert, Oriented x3, Cooperative, - - Looks more like himself today and has better color in his face and is smiling and seems more relaxed HEENT: Atraumatic, PERRLA Oral: Moist Mucosa, No Gingival or Mucosal Lesions/ Ulcerations Lungs: Clear to auscultation, Normal air movement Cardiovascular: Regular rate, Regular Rhythm, Normal S1, Normal S2, No murmurs, No Gallop Abdomen: Bowel Sounds Present, Soft, Distended - mild, softer today, Tender - but no guarding Extremities: No clubbing, No cyanosis, No edema, No Calf Tenderness Skin: No rashes Psych/Mental Status: Normal Affect, Appropriate Vital Signs Temp Pulse Resp BP Pulse Ox 98.1 F 62 16 125/74 H 98 10/11/17 15:16 10/11/17 15:16 10/11/17 15:16 10/11/17 15:16 10/11/17 15:16 Oxygen Delivery Method Room Air Weight: 165 lb 15.988 oz Body Mass Index (BMI) 24.5 Intake and Output for Last 24 Hours 10/09/17 10/10/17 10/11/17 23:59 23:59 23:59 Intake Total 4476 / 4476 4515 / 4515 3132 / 3132 Output Total 375 / 375 Balance 4101 / 4101 4515 / 4515 3132 / 3132 Microbiology Past 72 Hours 10/10/17 13:00 C. difficile DNA Amplification - Final Stool 10/10/17 13:00 Stool Lactoferrin - Final Stool 10/08/17 20:15 Enteric Bacteriology - Final Stool 10/08/17 20:15 C. difficile DNA Amplification - Final Stool Medical Necessity - Tobacco Use Smoking Status: Never smoker Tobacco Use: Non-smoker Assessment/Plan Active and Suspected Problems Diarrhea (Acute) Status post radical prostatectomy (Acute) Severe dehydration (Acute) Intractable nausea and vomiting (Acute) Impressions 1. N/V/D with ileus on CT scan of the abd and pelvis. C.diff and enteric pathogen panel are negative. AA series with ileus. Less distended today. 2. Dehydration -resolved 3. Prostate CA [place] 6 with recent robotic assisted radical prostatectomy on 09/22/2017 4. History of ectopic atrial tachycardia -controlled with Cardizem 5. HTN 6. Hyperglycemia-likely secondary to stress, hemoglobin A1c is 5.2 7. Insomnia 8. Normochromic normocytic anemia likely secondary to recent blood loss from radical prostatectomy - stable doing well with the advance in the diet Continue Protonix Decrease the IV rate Recheck a CBC and BMP tomorrow hold off on any further radiology unless he does not continue to improve Consult Dr. Cooley to see him in the AM Will call Dr. Medina again in the AM to check in. He is concerned about using the vacuum pump on the penis again because he is worried this may have lead to the hematuria and the ileus......I suspect the ileus may have been caused by a virus that has been going around the community Code Visit Inpatient E&M: 28878 Subs Hosp L1
[2017-10-11 21:02] VITALS: BP 127/74; PULSE 61; RESP 16; TEMP 36.8; O2SAT 97
[2017-10-11] MEDS: traZODone 50 MG Tablet PO (21:13)
--- NOTE | 2017-10-11 23:00 | NURSING ---
Per the patient, he has walked the hallways five times today. Ambulating without difficulties.
[2017-10-12 03:05] VITALS: BP 109/64; PULSE 62; RESP 16; TEMP 36.8; O2SAT 94
[2017-10-12] MEDS: Enoxaparin 40 MG/0.4 ML Syringe SC (05:17)
[2017-10-12] MEDS: 0.45% Normal Saline 1,000 ML 100 ML IV (05:18)
--- NOTE | 2017-10-12 06:22 | PCM.PN.SRG ---
Patient Problems: Active and Suspected Problems Diarrhea (Acute) Status post radical prostatectomy (Acute) Severe dehydration (Acute) Intractable nausea and vomiting (Acute) Subjective: Pt continues to feel better Passing flatus and tolerating fulls - Physical Exam Abdomen: Bowel Sounds Present, Soft, Non Tender Vital Signs Temp Pulse Resp BP Pulse Ox 98.2 F 62 16 109/64 94 10/12/17 03:05 10/12/17 03:05 10/12/17 03:05 10/12/17 03:05 10/12/17 03:05 Oxygen Delivery Method Room Air Weight: 165 lb 15.988 oz Body Mass Index (BMI) 24.5 Intake and Output for Last 24 Hours 10/10/17 10/11/17 10/12/17 23:59 23:59 23:59 Intake Total 4515 / 4515 3132 / 3132 1789 / 1789 Balance 4515 / 4515 3132 / 3132 1789 / 1789 Microbiology Past 72 Hours 10/10/17 13:00 C. difficile DNA Amplification - Final Stool 10/10/17 13:00 Stool Lactoferrin - Final Stool 10/08/17 20:15 Enteric Bacteriology - Final Stool Medical Necessity - Tobacco Use Smoking Status: Never smoker Tobacco Use: Non-smoker Assessment/Plan Active and Suspected Problems Diarrhea (Acute) Status post radical prostatectomy (Acute) Severe dehydration (Acute) Intractable nausea and vomiting (Acute) Clinically, Alfie is much improved Difficult to know whether this represents a urine leak with ileus or viral GI but he is improving; nausea resolved, fully hydrated, tolerating fulls Dr Cooley to see pt Concur with discharge later today
--- NOTE | 2017-10-12 08:02 | PCM.CONS.U ---
Reason for Consult Date of Consultation: 10/12/17 Reason for Consultation: Status post radical prostatectomy nausea vomiting History of Present Illness: The patient is a 57 year old and about 2 weeks later presented to the hospital with nausea vomiting was admitted to the hospital for further care. CAT scan was done that demonstrated dilated loops of small bowel no free fluid in the pelvis the bladder was empty and draining well. He has been seen a little bit of blood in the urine bladder control is okay is been urinating okay. The catheter has been removed a few weeks ago. He was managed conservatively with clear liquid diet and now is advanced to regular diet recent KUB demonstrates just an ileus pattern the looks like it is resolving he is passing gas his abdomen soft and benign he is ambulating. Past Medical History Past Medical History (Chronic Problems): Chronic Problems Hypertension (Chronic) Ectopic atrial tachycardia (Chronic) Prostate cancer (Chronic) Allergies iodine Allergy (Verified 07/23/16 16:23) Rash Home Medications: Ambulatory Orders Medication Instructions Recorded Aspirin E.C. [Ecotrin] 81 mg PO DAILY@0800 05/29/15 Atorvastatin Calcium [Lipitor] 10 mg PO DAILY 05/29/15 Diltiazem CD [Cardizem CD] 240 mg PO DAILY 05/29/15 Lisinopril [Zestril] 10 mg PO DAILY 10/08/17 Tadalafil [Cialis] 5 mg PO DAILY 10/08/17 Surgical History: - - Prostatectomy. Psychiatric History: No pertinent psych hx Lives: Spouse/ Significant Other Smoking Status: Never smoker Tobacco Use: Non-smoker Alcohol: None Drugs: None - *Family History Maternal History Items: No pertinent history Paternal History Items: No pertinent history Review of Systems Constitutional: Denies: Chills, Fever, Weight Change HEENT: Denies: Head Aches, Sinus Congestion, Sinus Drainage Cardiovascular: Denies: Chest Pain, Palpitations Respiratory: Denies: Cough, Shortness of breath at rest, Sputum production Gastrointestinal: Denies: Abdominal Pain, Nausea, Vomiting Musculoskeletal: Denies: Joint Pain, Joint Tenderness Skin: Denies: Rash, Wounds Neurological: Denies: Numbness, Tingling, Focal weakness Psychiatric: Denies: Anxiety, Depression, Homicidal Ideations, Suicidal Ideations Hematologic/ Lymphatic: Denies: Easy Bruising, Easy Bleeding Physical Exam - Physical Exam Vital Signs Temp 98.2 F 10/12/17 03:05 Pulse 62 10/12/17 03:05 Resp 16 10/12/17 03:05 BP 109/64 10/12/17 03:05 Pulse Ox 94 10/12/17 03:05 Intake & Output 10/10/17 10/11/17 10/12/17 23:59 23:59 23:59 Intake Total 4515 / 4515 3132 / 3132 1789 / 1789 Balance 4515 / 4515 3132 / 3132 178 / 178 Intake: Oral 1280 / 1280 1100 / 1100 560 / 560 IV fluid/meds 3235 / 3235 2031 / 2031 1229 / 1229 Other: Number of Voids 5 3 2 Number of Bowel Movements 2 2 1 General: Alert, Oriented x3 HEENT: Atraumatic Oral: Moist Mucosa Neck: Supple - 2 my Lungs: Clear to auscultation Cardiovascular: Regular rate Abdomen: Bowel Sounds Present - community like and sometimes my clinic recently so we navigated this might help him for Thursday for my visit he may have some questions, Soft Rectal: Exam deferred Lymphatic: No Cervical, Supraclavicular, or Inguinal Adenopathy Neurological: Cranial nerves II-XII grossly intact Psych/Mental Status: Normal Affect - today. I think measures February the time to call me and he is worried and called several times so Microbiology Past 72 Hours 10/10/17 13:00 C. difficile DNA Amplification - Final Stool 10/10/17 13:00 Stool Lactoferrin - Final Stool 10/08/17 20:15 Enteric Bacteriology - Final Stool Assessment/Plan Active and Suspected Problems Diarrhea (Acute) Status post radical prostatectomy (Acute) Severe dehydration (Acute) Intractable nausea and vomiting (Acute) 57-year-old male status post radical prostatectomy several weeks ago catheter was removed he presented to the hospital with nausea vomiting CT scan demonstrated small bowel loop dilated no free fluid in the pelvis no clear indications that he had a urine leak this was brought up as a question but currently no evidence of that has a little bit of tightness blood in the urine but this is not uncommon after an anastomosis for radical prostatectomy he is now ambulating doing well he is in full liquid diet tolerating this well last KUB demonstrated resolving ileus pattern relates unclear to me what caused his ileus and nausea vomiting could be viral could be postsurgical but is clinically getting better his abdomen soft and benign I do not think any further testing from my perspective is necessary I would avoid putting the catheter in her doing anything that could upset her disrupt the anastomosis. Probably can advance him to regular diet if he tolerates her diet with no any nausea vomiting and he still continues to pass gas he can be discharged he has a follow-up appointment with his operating urologist down in [place] this coming Thursday for follow-up.
[2017-10-12 08:31] VITALS: BP 137/78; PULSE 66; RESP 16; TEMP 36.9; O2SAT 97
[2017-10-12] MEDS: dilTIAZem CD 240 MG Capsule PO (08:32)
[2017-10-12] MEDS: Lisinopril 10 MG Tablet PO (08:33)
--- NOTE | 2017-10-12 09:25 | VDLE_ITS ---
Reason For Study: LEG PAIN RIGHT LEFT GSV is normal. CFV is compressible, spontaneous, phasic, CFV is compressible, spontaneous, phasic, competent, and demonstrates normal competent and demonstrates normal augmentation. augmentation. FV is compressible, spontaneous, phasic, competent and demonstrates normal augmentation. POP V is compressible, spontaneous, phasic, competent and demonstrates normal augmentation. T/P Trunk is compressible. PTV is compressible. RT PerV is compressible. Procedure Exam performed portable in patient room. A preliminary report was called and/or faxed to [facility]. Interpretation Summary There is no evidence of right lower extremity deep vein thrombosis. Right greater saphenous vein appears patent and compressible segmentally. Normal flow patterns left common femoral vein Ordering Physician: Caitlin Jack Referring Physician: Lissy Mcmanus M.D. Performed By: Leti Esquivel RVT
--- NOTE | 2017-10-12 11:33 | PCM.DC ---
- Discharge Diagnoses Current Active Problems: Current Active and Chronic Problems Diarrhea (Acute) Status post radical prostatectomy (Acute) Severe dehydration (Acute) Intractable nausea and vomiting (Acute) Hypertension (Chronic) Ectopic atrial tachycardia (Chronic) Prostate cancer (Chronic) You will use the following diet at home:: Other - stick to low residue for the next 3-5 days and then advance as tolerated. Your food should be the consistency of: Regular Your liquids should be the consistency of: Regular/Thin Call your doctor if you observe: Fever of 101 or Higher, Inability to urinate, Inability to have a bowel movement, Shortness of breath, Dizziness, Fainting spells, Swelling in the ankles, Chest pain, - - recurrent Nausea, vomiting, diarrhea, abdominal pain, hematruia that is in excess of pink tinged and a few clots Instructions: Low-Residue Diet Additional Instructions: I talked to the the surgical group at [facility] and they told me to have you continue the vacuum pump, Cialis and Kegel's exercises. They say that patients can continue to have clots in the urine for up to 3 months and this is normal. They did not feel that any additional testing was necessary at this time and apparently ileus is not uncommon. They will see you Thursday. The venous US of the RLE was negative. Your creat is normal. HGB is stable at 11.3. Tough to do but, forget about work! 3 things are very important when trying to heal wounds.....adequate sleep, a healthy diet and exercise. Sleep is always hard when you have so much on your mind. I am giving you the RX for Trazodone. If you need it to sleep it is not harmful, not addictive and it is a low dose. Another option would be Kava Kava....it is an herb and it helps with anxiety and sleep. Both Trazodone and Kava Kava are non-addictive. If there is anything I can do for you or Loretta please call me....[phone]. Pending Tests on Discharge: none Allergies/Adverse Reactions: Allergies iodine Allergy (Verified 07/23/16 16:23) Rash Medications to take at Discharge Aspirin E.C. [Ecotrin] 81 mg PO DAILY@0800 05/29/15 Atorvastatin Calcium [Lipitor] 10 mg PO DAILY 05/29/15 Diltiazem CD [Cardizem CD] 240 mg PO DAILY 05/29/15 Lisinopril [Zestril] 10 mg PO DAILY 10/08/17 Tadalafil [Cialis] 5 mg PO DAILY 10/08/17 Trazodone HCl [Desyrel] 50 mg PO QHS #45 tab 10/12/17 The following prescriptions were given: Trazodone HCl [Desyrel] 50 mg PO QHS #45 tab Primary Care Physician: Lissy Mcmanus DO [Primary Care Provider] - Please follow up with your Primary Care Physician in: as needed Please Follow Up With: Dr. Medina When: Thursday as previously scheduled Please Follow Up With: Kevin Cooley MD When: as needed Proposed Discharge Date: 10/12/17
--- NOTE | 2017-10-12 11:49 | PCM.DC.SUM ---
Discharge Date and Diagnosis Date of Admission: 10/08/17 Date of Discharge: 10/12/17 - Primary Discharge Diagnosis Active and Suspected Problems Ileus (Acute) Diarrhea (Acute) Severe dehydration (Acute) Intractable nausea and vomiting (Acute) - Secondary Discharge Diagnosis Chronic Problems Hypertension (Chronic) Ectopic atrial tachycardia (Chronic) Prostate cancer (Chronic) Robotic assisted radical prostatectomy 09/22/17 Hospital Course and Treatment Imaging Results: Laboratory Tests 10/08/17 10/08/17 10/08/17 10:30 10:30 10:30 WBC 10.6 RBC 4.41 L Hgb 12.9 L Hct 38.3 L MCV 86.8 MCH 29.3 MCHC 33.7 RDW 13.5 RDW Differential 43.1 Plt Count 373 MPV 9.5 Immature Gran % (Auto) 0.200 Neut % (Auto) 92.0 H Lymph % (Auto) 5.3 L [place] % (Auto) 2.4 Eos % (Auto) 0.0 Baso % (Auto) 0.1 Absolute Neuts (auto) 9.8 H Absolute Lymphs (auto) 0.56 L Total Counted Not Reportable Differential Comment COMMENT Sodium 138 Potassium 3.6 Chloride 104 Carbon Dioxide 24.0 Anion Gap 10 BUN 24 H Creatinine 0.90 Estim Creat Clear Calc 92.74 Est GFR (MDRD) Af Amer 112 Est GFR (MDRD) Non-Af 93 BUN/Creatinine Ratio 26.5 H Glucose 158 H Hemoglobin A1c Calcium 9.7 Magnesium 2.4 Total Bilirubin AST ALT Alkaline Phosphatase Total Protein Albumin Globulin Albumin/Globulin Ratio Amylase Lipase Urine Color Urine Clarity Urine pH Ur Specific [place] Urine Protein Urine Glucose (UA) Urine Ketones Urine Occult Blood Urine Nitrite Urine Bilirubin Urine Urobilinogen Ur Leukocyte Esterase Urine RBC Urine WBC Ur Squamous Epith Cells Urine Bacteria Urine Mucus POC Glucose 10/08/17 10/08/17 10/08/17 10:45 16:39 21:04 WBC RBC Hgb Hct MCV MCH MCHC RDW RDW Differential Plt Count MPV Immature Gran % (Auto) Neut % (Auto) Lymph % (Auto) [place] % (Auto) Eos % (Auto) Baso % (Auto) Absolute Neuts (auto) Absolute Lymphs (auto) Total Counted Differential Comment Sodium Potassium Chloride Carbon Dioxide Anion Gap BUN Creatinine Estim Creat Clear Calc Est GFR (MDRD) Af Amer Est GFR (MDRD) Non-Af BUN/Creatinine Ratio Glucose Hemoglobin A1c Calcium Magnesium Total Bilirubin AST ALT Alkaline Phosphatase Total Protein Albumin Globulin Albumin/Globulin Ratio Amylase Lipase Urine Color Yellow Urine Clarity Sl. Cloudy Urine pH 8.0 Ur Specific [place] 1.010 Urine Protein 30 H Urine Glucose (UA) Normal Urine Ketones 5 H Urine Occult Blood 250 H Urine Nitrite Negative Urine Bilirubin Negative Urine Urobilinogen 1 H Ur Leukocyte Esterase 25 H Urine RBC > 100 SEEN Urine WBC 0-5 SEEN Ur Squamous Epith Cells 0-5 SEEN Urine Bacteria 3+ Urine Mucus 2+ POC Glucose 122 H 110 10/09/17 10/09/17 10/09/17 06:32 06:45 06:45 WBC 9.1 RBC 3.70 L Hgb 10.9 L Hct 32.9 L MCV 88.9 MCH 29.5 MCHC 33.1 RDW 13.5 RDW Differential 42.5 Plt Count 320 MPV 9.1 Immature Gran % (Auto) 0.100 Neut % (Auto) 66.0 Lymph % (Auto) 19.9 [place] % (Auto) 12.9 H Eos % (Auto) 0.8 Baso % (Auto) 0.3 Absolute Neuts (auto) 6.0 Absolute Lymphs (auto) 1.80 Total Counted Not Reportable Differential Comment Sodium 142 Potassium 3.9 Chloride 112 H Carbon Dioxide 22.0 Anion Gap 8 BUN 15 Creatinine 0.59 L Estim Creat Clear Calc 141.47 Est GFR (MDRD) Af Amer 184 Est GFR (MDRD) Non-Af 152 BUN/Creatinine Ratio 25.6 H Glucose 97 Hemoglobin A1c Calcium 7.7 L Magnesium Total Bilirubin AST ALT Alkaline Phosphatase Total Protein Albumin Globulin Albumin/Globulin Ratio Amylase Lipase Urine Color Urine Clarity Urine pH Ur Specific [place] Urine Protein Urine Glucose (UA) Urine Ketones Urine Occult Blood Urine Nitrite Urine Bilirubin Urine Urobilinogen Ur Leukocyte Esterase Urine RBC Urine WBC Ur Squamous Epith Cells Urine Bacteria Urine Mucus POC Glucose 100 10/09/17 10/10/17 10/10/17 06:45 09:45 09:45 WBC 5.5 RBC 3.91 L Hgb 11.3 L Hct 34.7 L MCV 88.7 MCH 28.9 MCHC 32.6 RDW 13.5 RDW Differential 44.0 H Plt Count 274 MPV 9.3 Immature Gran % (Auto) 0.000 Neut % (Auto) 60.5 Lymph % (Auto) 23.5 [place] % (Auto) 14.0 H Eos % (Auto) 1.6 Baso % (Auto) 0.4 Absolute Neuts (auto) 3.3 Absolute Lymphs (auto) 1.29 Total Counted Not Reportable Differential Comment Sodium 141 Potassium 3.6 Chloride 109 H Carbon Dioxide 24.0 Anion Gap 8 BUN 6 L Creatinine 0.81 Estim Creat Clear Calc 103.04 Est GFR (MDRD) Af Amer 127 Est GFR (MDRD) Non-Af 105 BUN/Creatinine Ratio 7.4 L Glucose 118 H Hemoglobin A1c 5.2 Calcium 8.3 L Magnesium 2.2 Total Bilirubin 1.20 H AST 15 ALT 29 Alkaline Phosphatase 61 Total Protein 6.4 Albumin 3.2 Globulin 3.2 Albumin/Globulin Ratio 1.0 Amylase Lipase Urine Color Urine Clarity Urine pH Ur Specific [place] Urine Protein Urine Glucose (UA) Urine Ketones Urine Occult Blood Urine Nitrite Urine Bilirubin Urine Urobilinogen Ur Leukocyte Esterase Urine RBC Urine WBC Ur Squamous Epith Cells Urine Bacteria Urine Mucus POC Glucose 10/10/17 09:45 WBC RBC Hgb Hct MCV MCH MCHC RDW RDW Differential Plt Count MPV Immature Gran % (Auto) Neut % (Auto) Lymph % (Auto) [place] % (Auto) Eos % (Auto) Baso % (Auto) Absolute Neuts (auto) Absolute Lymphs (auto) Total Counted Differential Comment Sodium Potassium Chloride Carbon Dioxide Anion Gap BUN Creatinine Estim Creat Clear Calc Est GFR (MDRD) Af Amer Est GFR (MDRD) Non-Af BUN/Creatinine Ratio Glucose Hemoglobin A1c Calcium Magnesium Total Bilirubin AST ALT Alkaline Phosphatase Total Protein Albumin Globulin Albumin/Globulin Ratio Amylase 41 Lipase 101 Urine Color Urine Clarity Urine pH Ur Specific [place] Urine Protein Urine Glucose (UA) Urine Ketones Urine Occult Blood Urine Nitrite Urine Bilirubin Urine Urobilinogen Ur Leukocyte Esterase Urine RBC Urine WBC Ur Squamous Epith Cells Urine Bacteria Urine Mucus POC Glucose Clinical Impression(s) from Imaging Studies Abdomen/Pelvis CT 10/08/17 14:42 IMPRESSION: Findings suggesting an ileus. There is wall thickening of the descending and rectosigmoid colon. There is also questionable inflammation around the colon. This can suggest a colitis. This can also suggest incomplete distension of the colon. Electronically Signed: Galdino Peralta MD at 16:16 EDT , Service support , Acute Abdomen Series 10/10/17 09:31 IMPRESSION: Radiographic pattern consistent with ileus. With correlation with CT October 08, 2017 CT scan abdomen and pelvis Consider gastroenteritis No evidence of acute focal infiltrate. Electronically Signed: Amy Centeno MD at 9:55 EDT Tel , Service support , Dr. James Cooley - Urology Dr. Wesly Lopez - general surgery Operations: None Procedures: None Summary of Care Provided: 57 YO male with hx of ectopic atrial tachycardia, hypertension and Prostate CA with recent robotic assisted radical prostatectomy on 09/22/17 who presented to the ED on 10/08/17 c/o abdominal pain and distension, nausea and vomiting and decreased appetite. He had been doing well post operatively until 10/07/17 when he developed the aforementioned symptoms. He denied fevers and chills. Emesis was not feculent......it was more bilious. CT of the abd and pelvis showed an Ileus. The white blood cell count was 10.6 with 92% neutrophils. Hemoglobin was 12.9 and the platelet count was 373,000. BUN was increased at 24 with a creatinine of 0.9 and a BUN/creatinine ratio of 26. A random blood sugar was 158. Hemoglobin A1c was 5.2. Urine showed greater than 100 RBCs with only 0-5 WBCs. He was admitted to the hospital with a diagnosis of dehydration and ileus. IV fluids were initiated and he was started on sips of clear liquids. Clostridium difficile was negative ?2. An enteric pathogen panel was negative. He continued to have loose liquid stools. BUN and creatinine improved with hydration. An acute abdominal series on 10/10/17 continued to show an ileus pattern with significant gaseous distention of the small intestine and colon. He ambulated frequently in the halls and his symptoms gradually improved. The diet was increased as tolerated and prior to discharge he tolerated a low fat diet. He had not had a stool in 12 hours at the time of DC. Creat was stable. The abdomen was soft, non-distended and had normal BS's. Lungs were CTA and the Heart had a RRR with no MM and no gallop. I contacted [facility] twice during his admission for reassurance that he could stay in [place] for Treatment and to discuss any testing they might fell is necessary. They reassured me that small clots occur in the urine for up to 3 months following a radical prostatectomy. He recommended he can continue using Cialis and the penile vacuum pump. He will also continue doing Kegel's exercises to strengthen the pelvic floor. He has a follow up appt at [facility] on 10/[address] Medina. He was discharged home on 10/12 in good condition. He will return to the ED if any gross hematuria, recurrent N/V/abdominal pain, fevers or painful urination. This note was generated with [employer] dictation software. It may contain incorrect words, spelling, and punctuation that were not noted in checking the note before signing. Call your doctor if you observe: Fever of 101 or Higher, Inability to urinate, Inability to have a bowel movement, Shortness of breath, Dizziness, Fainting spells, Swelling in the ankles, Chest pain, - - recurrent Nausea, vomiting, diarrhea, abdominal pain, hematruia that is in excess of pink tinged and a few clots Home Medications: Medications to take at Discharge Aspirin E.C. [Ecotrin] 81 mg PO DAILY@0800 05/29/15 Atorvastatin Calcium [Lipitor] 10 mg PO DAILY 05/29/15 Diltiazem CD [Cardizem CD] 240 mg PO DAILY 05/29/15 Lisinopril [Zestril] 10 mg PO DAILY 10/08/17 Tadalafil [Cialis] 5 mg PO DAILY 10/08/17 Trazodone HCl [Desyrel] 50 mg PO QHS #45 tab 10/12/17 Following Prescrptions Were Given to Patient: Trazodone HCl [Desyrel] 50 mg PO QHS #45 tab Primary Care Physician: Lissy Mcmanus DO [Primary Care Provider] - Please follow up with your Primary Care Physician in: as needed Please Follow Up With: Dr. Medina When: Thursday as previously scheduled Please Follow Up With: Kevin Cooley MD When: as needed Patient Instructions: Low-Residue Diet Disposition: Home Minutes spent on discharge:: 30 Patient Condition:: Good Medical Necessity - Tobacco Use Smoking Status: Never smoker Tobacco Use: Non-smoker Meaningful Use Info Meaningful Use Diagnoses (Choose all that apply): None applicable Code Visit Inpatient E&M: 48264 Disch Hosp
--- NOTE | 2017-10-12 11:54 | DS.PCM_ITS ---
Discharge Date and Diagnosis Date of Admission: 10/08/17 Date of Discharge: 10/12/17 - Primary Discharge Diagnosis Active and Suspected Problems Ileus (Acute) Diarrhea (Acute) Severe dehydration (Acute) Intractable nausea and vomiting (Acute) - Secondary Discharge Diagnosis Chronic Problems Hypertension (Chronic) Ectopic atrial tachycardia (Chronic) Prostate cancer (Chronic) Robotic assisted radical prostatectomy 09/22/17 Hospital Course and Treatment Imaging Results: Laboratory Tests 10/08/17 10/08/17 10/08/17 10:30 10:30 10:30 WBC 10.6 RBC 4.41 L Hgb 12.9 L Hct 38.3 L MCV 86.8 MCH 29.3 MCHC 33.7 RDW 13.5 RDW Differential 43.1 Plt Count 373 MPV 9.5 Immature Gran % (Auto) 0.200 Neut % (Auto) 92.0 H Lymph % (Auto) 5.3 L [place] % (Auto) 2.4 Eos % (Auto) 0.0 Baso % (Auto) 0.1 Absolute Neuts (auto) 9.8 H Absolute Lymphs (auto) 0.56 L Total Counted Not Reportable Differential Comment COMMENT Sodium 138 Potassium 3.6 Chloride 104 Carbon Dioxide 24.0 Anion Gap 10 BUN 24 H Creatinine 0.90 Estim Creat Clear Calc 92.74 Est GFR (MDRD) Af Amer 112 Est GFR (MDRD) Non-Af 93 BUN/Creatinine Ratio 26.5 H Glucose 158 H Hemoglobin A1c Calcium 9.7 Magnesium 2.4 Total Bilirubin AST ALT Alkaline Phosphatase Total Protein Albumin Globulin Albumin/Globulin Ratio Amylase Lipase Urine Color Urine Clarity Urine pH Ur Specific [place] Urine Protein Urine Glucose (UA) Urine Ketones Urine Occult Blood Urine Nitrite Urine Bilirubin Urine Urobilinogen Ur Leukocyte Esterase Urine RBC Urine WBC Ur Squamous Epith Cells Urine Bacteria Urine Mucus POC Glucose 10/08/17 10/08/17 10/08/17 10:45 16:39 21:04 WBC RBC Hgb Hct MCV MCH MCHC RDW RDW Differential Plt Count MPV Immature Gran % (Auto) Neut % (Auto) Lymph % (Auto) [place] % (Auto) Eos % (Auto) Baso % (Auto) Absolute Neuts (auto) Absolute Lymphs (auto) Total Counted Differential Comment Sodium Potassium Chloride Carbon Dioxide Anion Gap BUN Creatinine Estim Creat Clear Calc Est GFR (MDRD) Af Amer Est GFR (MDRD) Non-Af BUN/Creatinine Ratio Glucose Hemoglobin A1c Calcium Magnesium Total Bilirubin AST ALT Alkaline Phosphatase Total Protein Albumin Globulin Albumin/Globulin Ratio Amylase Lipase Urine Color Yellow Urine Clarity Sl. Cloudy Urine pH 8.0 Ur Specific [place] 1.010 Urine Protein 30 H Urine Glucose (UA) Normal Urine Ketones 5 H Urine Occult Blood 250 H Urine Nitrite Negative Urine Bilirubin Negative Urine Urobilinogen 1 H Ur Leukocyte Esterase 25 H Urine RBC > 100 SEEN Urine WBC 0-5 SEEN Ur Squamous Epith Cells 0-5 SEEN Urine Bacteria 3+ Urine Mucus 2+ POC Glucose 122 H 110 10/09/17 10/09/17 10/09/17 06:32 06:45 06:45 WBC 9.1 RBC 3.70 L Hgb 10.9 L Hct 32.9 L MCV 88.9 MCH 29.5 MCHC 33.1 RDW 13.5 RDW Differential 42.5 Plt Count 320 MPV 9.1 Immature Gran % (Auto) 0.100 Neut % (Auto) 66.0 Lymph % (Auto) 19.9 [place] % (Auto) 12.9 H Eos % (Auto) 0.8 Baso % (Auto) 0.3 Absolute Neuts (auto) 6.0 Absolute Lymphs (auto) 1.80 Total Counted Not Reportable Differential Comment Sodium 142 Potassium 3.9 Chloride 112 H Carbon Dioxide 22.0 Anion Gap 8 BUN 15 Creatinine 0.59 L Estim Creat Clear Calc 141.47 Est GFR (MDRD) Af Amer 184 Est GFR (MDRD) Non-Af 152 BUN/Creatinine Ratio 25.6 H Glucose 97 Hemoglobin A1c Calcium 7.7 L Magnesium Total Bilirubin AST ALT Alkaline Phosphatase Total Protein Albumin Globulin Albumin/Globulin Ratio Amylase Lipase Urine Color Urine Clarity Urine pH Ur Specific [place] Urine Protein Urine Glucose (UA) Urine Ketones Urine Occult Blood Urine Nitrite Urine Bilirubin Urine Urobilinogen Ur Leukocyte Esterase Urine RBC Urine WBC Ur Squamous Epith Cells Urine Bacteria Urine Mucus POC Glucose 100 10/09/17 10/10/17 10/10/17 06:45 09:45 09:45 WBC 5.5 RBC 3.91 L Hgb 11.3 L Hct 34.7 L MCV 88.7 MCH 28.9 MCHC 32.6 RDW 13.5 RDW Differential 44.0 H Plt Count 274 MPV 9.3 Immature Gran % (Auto) 0.000 Neut % (Auto) 60.5 Lymph % (Auto) 23.5 [place] % (Auto) 14.0 H Eos % (Auto) 1.6 Baso % (Auto) 0.4 Absolute Neuts (auto) 3.3 Absolute Lymphs (auto) 1.29 Total Counted Not Reportable Differential Comment Sodium 141 Potassium 3.6 Chloride 109 H Carbon Dioxide 24.0 Anion Gap 8 BUN 6 L Creatinine 0.81 Estim Creat Clear Calc 103.04 Est GFR (MDRD) Af Amer 127 Est GFR (MDRD) Non-Af 105 BUN/Creatinine Ratio 7.4 L Glucose 118 H Hemoglobin A1c 5.2 Calcium 8.3 L Magnesium 2.2 Total Bilirubin 1.20 H AST 15 ALT 29 Alkaline Phosphatase 61 Total Protein 6.4 Albumin 3.2 Globulin 3.2 Albumin/Globulin Ratio 1.0 Amylase Lipase Urine Color Urine Clarity Urine pH Ur Specific [place] Urine Protein Urine Glucose (UA) Urine Ketones Urine Occult Blood Urine Nitrite Urine Bilirubin Urine Urobilinogen Ur Leukocyte Esterase Urine RBC Urine WBC Ur Squamous Epith Cells Urine Bacteria Urine Mucus POC Glucose 10/10/17 09:45 WBC RBC Hgb Hct MCV MCH MCHC RDW RDW Differential Plt Count MPV Immature Gran % (Auto) Neut % (Auto) Lymph % (Auto) [place] % (Auto) Eos % (Auto) Baso % (Auto) Absolute Neuts (auto) Absolute Lymphs (auto) Total Counted Differential Comment Sodium Potassium Chloride Carbon Dioxide Anion Gap BUN Creatinine Estim Creat Clear Calc Est GFR (MDRD) Af Amer Est GFR (MDRD) Non-Af BUN/Creatinine Ratio Glucose Hemoglobin A1c Calcium Magnesium Total Bilirubin AST ALT Alkaline Phosphatase Total Protein Albumin Globulin Albumin/Globulin Ratio Amylase 41 Lipase 101 Urine Color Urine Clarity Urine pH Ur Specific [place] Urine Protein Urine Glucose (UA) Urine Ketones Urine Occult Blood Urine Nitrite Urine Bilirubin Urine Urobilinogen Ur Leukocyte Esterase Urine RBC Urine WBC Ur Squamous Epith Cells Urine Bacteria Urine Mucus POC Glucose Clinical Impression(s) from Imaging Studies Abdomen/Pelvis CT 10/08/17 14:42 IMPRESSION: Findings suggesting an ileus. There is wall thickening of the descending and rectosigmoid colon. There is also questionable inflammation around the colon. This can suggest a colitis. This can also suggest incomplete distension of the colon. Electronically Signed: Galdino Peralta MD at 16:16 EDT , Service support , Acute Abdomen Series 10/10/17 09:31 IMPRESSION: Radiographic pattern consistent with ileus. With correlation with CT October 08, 2017 CT scan abdomen and pelvis Consider gastroenteritis No evidence of acute focal infiltrate. Electronically Signed: Amy Centeno MD at 9:55 EDT Tel , Service support , Dr. James Cooley - Urology Dr. Wesly Loepz - general surgery Operations: None Procedures: None Summary of Care Provided: 57 YO male with hx of ectopic atrial tachycardia, hypertension and Prostate CA with recent robotic assisted radical prostatectomy on 09/22/17 who presented to the ED on 10/08/17 c/o abdominal pain and distension, nausea and vomiting and decreased appetite. He had been doing well post operatively until 10/07/17 when he developed the aforementioned symptoms. He denied fevers and chills. Emesis was not feculent......it was more bilious. CT of the abd and pelvis showed an Ileus. The white blood cell count was 10.6 with 92% neutrophils. Hemoglobin was 12.9 and the platelet count was 373,000. BUN was increased at 24 with a creatinine of 0.9 and a BUN/creatinine ratio of 26. A random blood sugar was 158. Hemoglobin A1c was 5.2. Urine showed greater than 100 RBCs with only 0-5 WBCs. He was admitted to the hospital with a diagnosis of dehydration and ileus. IV fluids were initiated and he was started on sips of clear liquids. Clostridium difficile was negative ?2. An enteric pathogen panel was negative. He continued to have loose liquid stools. BUN and creatinine improved with hydration. An acute abdominal series on 10/10/17 continued to show an ileus pattern with significant gaseous distention of the small intestine and colon. He ambulated frequently in the halls and his symptoms gradually improved. The diet was increased as tolerated and prior to discharge he tolerated a low fat diet. He had not had a stool in 12 hours at the time of DC. Creat was stable. The abdomen was soft, non-distended and had normal BS's. Lungs were CTA and the Heart had a RRR with no MM and no gallop. I contacted [facility] twice during his admission for reassurance that he could stay in [place] for Treatment and to discuss any testing they might fell is necessary. They reassured me that small clots occur in the urine for up to 3 months following a radical prostatectomy. He recommended he can continue using Cialis and the penile vacuum pump. He will also continue doing Kegel's exercises to strengthen the pelvic floor. He has a follow up appt at [facility] on with Dr. Medina. He was discharged home on 10/12 in good condition. He will return to the ED if any gross hematuria, recurrent N/V/abdominal pain, fevers or painful urination. This note was generated with [employer] dictation software. It may contain incorrect words, spelling, and punctuation that were not noted in checking the note before signing. Call your doctor if you observe: Fever of 101 or Higher, Inability to urinate, Inability to have a bowel movement, Shortness of breath, Dizziness, Fainting spells, Swelling in the ankles, Chest pain, - - recurrent Nausea, vomiting, diarrhea, abdominal pain, hematruia that is in excess of pink tinged and a few clots Home Medications: Medications to take at Discharge Aspirin E.C. [Ecotrin] 81 mg PO DAILY@0800 05/29/15 Atorvastatin Calcium [Lipitor] 10 mg PO DAILY 05/29/15 Diltiazem CD [Cardizem CD] 240 mg PO DAILY 05/29/15 Lisinopril [Zestril] 10 mg PO DAILY 10/08/17 Tadalafil [Cialis] 5 mg PO DAILY 10/08/17 Trazodone HCl [Desyrel] 50 mg PO QHS #45 tab 10/12/17 Following Prescrptions Were Given to Patient: Trazodone HCl [Desyrel] 50 mg PO QHS #45 tab Primary Care Physician: Lissy Mcmanus DO [Primary Care Provider] - Please follow up with your Primary Care Physician in: as needed Please Follow Up With: Dr. Medina When: Thursday as previously scheduled Please Follow Up With: Kevin Cooley MD When: as needed Patient Instructions: Low-Residue Diet Disposition: Home Minutes spent on discharge:: 30 Patient Condition:: Good Medical Necessity - Tobacco Use Smoking Status: Never smoker Tobacco Use: Non-smoker Meaningful Use Info Meaningful Use Diagnoses (Choose all that apply): None applicable Code Visit Inpatient E&M: 66745 Disch Hosp
[2017-10-12 12:08] VITALS: BP 119/72; PULSE 63; RESP 16; TEMP 36.7; O2SAT 98
== END 2017-10-12 12:25 | disposition home or self-care (01) | DRG 389 ==
LOC: ED 10:46 → PCU 14:40
PROVIDERS: Admitting Provider Hospitalist; Emergency Provider Emergency Medicine; Family Provider Internal Medicine; PCP Internal Medicine; Visit Provider Internal Medicine
DX: K56.0 Paralytic ileus (principal); I47.1 Supraventricular tachycardia; D50.0 Iron deficiency anemia secondary to blood loss (chronic); E86.0 Dehydration; I10 Essential (primary) hypertension; Z90.79 Acquired absence of other genital organ(s); Z85.46 Personal history of malignant neoplasm of prostate; R73.9 Hyperglycemia, unspecified; Z79.899 Other long term (current) drug therapy
CPT/HCPCS: 36415; 74022; 74176; 80048; 80053; 81001; 82150; 82962; 83036; 83630; 83690; 83735; 85025; 87086; 87177; 87209; 87493; 87506; 93971; 99284; J7030; J7040; A4216; J2405

== ENCOUNTER → 2017-10-30 10:10 | Outpatient (CLI) | payer OTHER, SELFPAY ==
[2017-10-30 11:23] LABS: Absolute Lymphocyte Count 1.57 X10^3/ul (0.83-4.51); Absolute Neutrophil Count 3.7 X10^3/uL (2.0-7.7); Basophil# 0.03 X10^3/uL; Basophil% 0.5 % (0-1); Eosinophil# 0.09 X10^3/uL; Eosinophils% 1.4 % (0-5); Hemoglobin 13.5 g/dl (13.0-16.5); Lymphocyte # 1.57 X10^3/ul (4.0); Lymphocyte % 25.2 % (19-41); Mean Corp Hgb Conc 33.8 g/gl (32-36); Mean Corpuscular Hgb 29.4 pg (27.0-32.0); Mean Corpuscular Volume 87.1 fL (80-94); Mean Platelet Vol. 9.8 fl (6.2-12.0); Monocyte# 0.84 X10^3/uL; Monocyte% 13.5 % (0-10); Neutrophil % 59.2 % (47-70); Platelet Count 299 K/mm3 (150-450); RBC Distribution Width CV 13.1 % (11.6-14.6); Red Blood Count 4.59 M/mm3 (4.6-6.2); White Blood Count 6.2 K/mm3 (4.4-11.0)
[2017-10-30 11:25] LABS: POSITIVE COUNT NO; POSITIVE DIFFERENTIAL NO; POSITIVE MORPHOLOGY NO
[2017-10-30 11:48] LABS: Anion Gap 7 (5-15); BUN 20 mg/dL (7-18); BUN/Creat Ratio 24.4 RATIO (10-20); Calcium,Total 9.3 mg/dL (8.5-10.1); Chloride 105 mmol/L (98-107); Creatinine, Serum 0.82 mg/dL (0.70-1.30); EST Glomerular Filtration Rate 103 mL/min (>60); Est Glom Filt Rate - Afr Amer 125 mL/min (>60); Glucose 87 mg/dL (74-106); Potassium 4.4 mmol/L (3.5-5.1); Sodium Level 140 mmol/L (136-145)
== END ==
PROVIDERS: Family Provider Internal Medicine; PCP Internal Medicine; Visit Provider Internal Medicine
DX: R73.9 Hyperglycemia, unspecified (principal)
CPT/HCPCS: 36415; 80048; 85025

== ENCOUNTER → 2017-11-09 06:40 | Outpatient (CLI) | payer OTHER, SELFPAY ==
--- NOTE | 2017-11-09 06:45 | MRI_ITS ---
STUDY: MRI ABDOMEN WITH CONTRAST REASON FOR EXAM: Male, 57 years old. Left adrenal nodule TECHNIQUE: Standardized fat and water weighted pulse sequences were obtained in all 3 orthogonal planes post contrast administration. 7 ml of Gadavist contrast material was administered intravenously. COMPARISON: CT dated 10/08/2017 FINDINGS: The visualized lung bases are unremarkable. The visualized portions of the heart are within normal limits. Normal liver. Normal gallbladder and extrahepatic biliary system. Normal spleen. Normal pancreas. There is a 1 cm left adrenal nodule which demonstrates loss of signal on out of phase images. This is consistent with an adrenal adenoma. The right adrenal gland is within normal limits. Normal right kidney. Normal left kidney. Normal visualized stomach. Normal small intestine. Normal colon. The appendix is visualized and appears normal. Normal abdominal aorta. Normal inferior vena cava. Normal retroperitoneum. Normal abdominal wall. Normal osseous structures. MRI/MRI Abd WITH and W/O Contrast IMPRESSION: 1 cm left adrenal adenoma. Electronically Signed: Liam Gamble, at 17:55 EDT Tel , Service support ,
== END ==
PROVIDERS: Family Provider Internal Medicine; PCP Internal Medicine; Visit Provider Internal Medicine
DX: D35.00 Benign neoplasm of unspecified adrenal gland (principal)
CPT/HCPCS: 74183; A9585

== ENCOUNTER → 2018-05-25 14:13 | Outpatient (CLI) | payer OTHER, SELFPAY ==
[2018-05-25 14:17] LABS: Bacteria 0 SEEN /hpf (None Seen); Red Blood Cells-Urine 0 SEEN /hpf (0-5); Squamous Epithelial Cells - UA 0 SEEN /hpf (0-5)
[2018-05-25 14:53] LABS: Absolute Lymphocyte Count 1.73 X10^3/ul (0.83-4.51); Absolute Neutrophil Count 3.8 X10^3/uL (2.0-7.7); Basophil# 0.03 X10^3/uL; Basophil% 0.5 % (0-1); Color, Urine Yellow (Yellow); Eosinophil# 0.06 X10^3/uL; Glucose, Dipstick Normal (Normal); Hemoglobin 14.1 g/dl (13.0-16.5); Ketone-Dipstick Negative (Negative); Leukocyte Esterase-Dipstick 25 /ul (Negative); Lymphocyte # 1.73 X10^3/ul (4.0); Lymphocyte % 27.4 % (19-41); Mean Corp Hgb Conc 33.6 g/gl (32-36); Mean Corpuscular Hgb 29.7 pg (27.0-32.0); Mean Corpuscular Volume 88.4 fL (80-94); Mean Platelet Vol. 9.6 fl (6.2-12.0); Monocyte# 0.73 X10^3/uL; Monocyte% 11.6 % (0-10); Neutrophil # 3.75 X10^3/uL (2.7-7.7); Neutrophil % 59.3 % (47-70); Nitrite-Dipstick Negative (Negative); Occult Blood-Urine Negative /ul (Negative); Platelet Count 301 K/mm3 (150-450); Protein-Dipstick 15 mg/dl (Negative); RBC Distribution Width CV 12.8 % (11.6-14.6); RBC Distribution Width SD 40.9 fl (35.1-43.9); Red Blood Count 4.75 M/mm3 (4.6-6.2); Specific Gravity, Urine 1.025 (1.002-1.030); Urine Bilirubin Dipstick Negative (Negative); Urine Clarity Sl. Cloudy (Clear); Urine Urobilinogen Normal (Normal); White Blood Count 6.3 K/mm3 (4.4-11.0)
[2018-05-25 14:57] LABS: POSITIVE COUNT NO; POSITIVE DIFFERENTIAL NO; POSITIVE MORPHOLOGY NO
[2018-05-25 14:58] LABS: Mucous, Urine 1+ /hpf (<or=2+); White Blood Cells 0-5 SEEN /hpf (0-5)
[2018-05-25 15:17] LABS: ALB/GLOB Ratio 1.4 RATIO (0.9-2.4); AST(SGOT) 17 U/L (15-37); Alanine Aminotransfer ALT/SGPT 26 U/L (16-61); Albumin, Serum 4.7 g/dL (3.2-5.0); Alkaline Phosphatase 71 U/L (45-117); Anion Gap 7 (5-15); BUN 21 mg/dL (7-18); BUN/Creat Ratio 25.1 RATIO (10-20); Calcium,Total 9.1 mg/dL (8.5-10.1); Chloride 106 mmol/L (98-107); Cholesterol 136 mg/dL (200); Creatinine, Serum 0.84 mg/dL (0.70-1.30); EST Glomerular Filtration Rate 101 mL/min (>60); Est Glom Filt Rate - Afr Amer 122 mL/min (>60); Globulin 3.4 g/dL (2.2-4.2); Glucose 90 mg/dL (74-106); High Density Lipoprotein 56 mg/dL; Protein, Total 8.1 g/dL (6.4-8.2); Sodium Level 141 mmol/L (136-145); Triglycerides 114 mg/dL; Very Low Density Lipoprotein 23 mg/dL (5-40)
[2018-05-26 11:34] LABS: Vitamin B12 526 pg/mL (211-911)
[2018-05-27 12:07] LABS: CHOLESTEROL TOTAL 142 mg/dL (100-199); HDL-C 52 mg/dL (>39); HDL-P TOTAL 34.8 umol/L (>=30.5); SMALL LDL-P 350 nmol/L (<=527); TRIGLYCERIDES 117 mg/dL (0-149)
[2018-05-28 12:42] LABS: LDL SIZE 20.6 nm (>20.5); LDL-C 67 mg/dL (0-99); LDL-P 791 nmol/L (<1000); LP-IR SCORE ** 37 (<=45)
== END ==
PROVIDERS: Family Provider Internal Medicine; PCP Internal Medicine; Referring Provider Internal Medicine; Visit Provider Internal Medicine
DX: E53.8 Deficiency of other specified B group vitamins (principal); I10 Essential (primary) hypertension; E78.49 Other hyperlipidemia
CPT/HCPCS: 36415; 80053; 80061; 81001; 82043; 82570; 82607; 83704; 85025

== ENCOUNTER → 2019-01-11 13:35 | Outpatient (CLI) | payer OTHER, SELFPAY ==
[2019-01-11 13:45] LABS: Bacteria 0 SEEN /hpf (None Seen); Mucous, Urine 0 SEEN /hpf (<or=2+); Red Blood Cells-Urine 0 SEEN /hpf (0-5); Squamous Epithelial Cells - UA 0 SEEN /hpf (0-5); White Blood Cells 0 SEEN /hpf (0-5)
[2019-01-11 14:52] LABS: Color, Urine Yellow (Yellow); Glucose, Dipstick Normal (Normal); Ketone-Dipstick Negative (Negative); Leukocyte Esterase-Dipstick Negative /ul (Negative); Nitrite-Dipstick Negative (Negative); Occult Blood-Urine Negative /ul (Negative); Protein-Dipstick Negative (Negative); Urine Bilirubin Dipstick Negative (Negative); Urine Clarity Clear (Clear); Urine Urobilinogen Normal (Normal)
[2019-01-11 14:58] LABS: Absolute Lymphocyte Count 1.57 X10^3/ul (0.83-4.51); Absolute Neutrophil Count 3.2 X10^3/uL (2.0-7.7); Basophil# 0.01 X10^3/uL; Basophil% 0.2 % (0-1); Eosinophil# 0.05 X10^3/uL; Eosinophils% 0.9 % (0-5); Hematocrit 41.6 % (40-54); Hemoglobin 14.2 g/dl (13.0-16.5); Lymphocyte # 1.57 X10^3/ul (4.0); Lymphocyte % 28.5 % (19-41); Mean Corp Hgb Conc 34.1 g/gl (32-36); Mean Corpuscular Hgb 29.3 pg (27.0-32.0); Mean Platelet Vol. 9.7 fl (6.2-12.0); Monocyte# 0.69 X10^3/uL; Monocyte% 12.5 % (0-10); Neutrophil # 3.17 X10^3/uL (2.7-7.7); Neutrophil % 57.7 % (47-70); POSITIVE COUNT NO; POSITIVE DIFFERENTIAL NO; POSITIVE MORPHOLOGY NO; Platelet Count 295 K/mm3 (150-450); RBC Distribution Width CV 12.9 % (11.6-14.6); Red Blood Count 4.84 M/mm3 (4.6-6.2); White Blood Count 5.5 K/mm3 (4.4-11.0)
[2019-01-11 15:14] LABS: Microalbumin,Random Urine 10.5 mg/L (NO RANGE EST.); Microalbumin:Creatinine Ratio 7.1 mg/g CRE (<30 mg/g CRE)
[2019-01-11 15:25] LABS: Vitamin B12 631 pg/mL (211-911)
[2019-01-11 15:30] LABS: ALB/GLOB Ratio 1.3 RATIO (0.9-2.4); AST(SGOT) 18 U/L (15-37); Alanine Aminotransfer ALT/SGPT 31 U/L (16-61); Albumin, Serum 4.4 g/dL (3.2-5.0); Alkaline Phosphatase 76 U/L (45-117); Anion Gap 8 (5-15); BUN 19 mg/dL (7-18); BUN/Creat Ratio 23.5 RATIO (10-20); Calcium,Total 9.2 mg/dL (8.5-10.1); Chloride 105 mmol/L (98-107); Creatinine, Serum 0.81 mg/dL (0.70-1.30); EST Glomerular Filtration Rate 105 mL/min (>60); Est Glom Filt Rate - Afr Amer 127 mL/min (>60); Globulin 3.5 g/dL (2.2-4.2); Glucose 94 mg/dL (74-106); Potassium 4.5 mmol/L (3.5-5.1); Protein, Total 7.9 g/dL (6.4-8.2); Sodium Level 142 mmol/L (136-145); Thyroid Stim Hormone (TSH) 2.43 uIU/mL (0.358-3.74)
[2019-01-13 16:07] LABS: CHOLESTEROL TOTAL 170 mg/dL (100-199); HDL-C 52 mg/dL (>39); HDL-P TOTAL 35.2 umol/L (>=30.5); SMALL LDL-P 650 nmol/L (<=527); TRIGLYCERIDES 152 mg/dL (0-149)
[2019-01-13 16:32] LABS: INSULIN RESISTANCE SCORE 55 (<=45); LDL SIZE 20.4 nm (>20.5); LDL-C 88 mg/dL (0-99); LDL-P 1010 nmol/L (<1000)
== END ==
PROVIDERS: Family Provider Internal Medicine; PCP Internal Medicine; Referring Provider Internal Medicine; Visit Provider Internal Medicine
DX: E53.8 Deficiency of other specified B group vitamins (principal); E78.49 Other hyperlipidemia; R03.0 Elevated blood-pressure reading, without diagnosis of hypertension
CPT/HCPCS: 36415; 80053; 80061; 81001; 82043; 82570; 82607; 83704; 84443; 85025

== ENCOUNTER 2019-07-09 16:14 | Observation (INO) | payer OTHER, SELFPAY ==
[2019-07-09] VITALS (9 sets, daily range): BP systolic 94–128; BP diastolic 54–75; PULSE 59–76; RESP 14–16; TEMP 36.7–36.8; O2SAT 95–100; BMI 24.4; BMI 24.7; BMI 24.8
--- NOTE | 2019-07-09 16:19 | EKG12_ITS ---
Test Reason : Blood Pressure : / mmHG Vent. Rate : 048 BPM Atrial Rate : 048 BPM P-R Int : 152 ms QRS Dur : 098 ms QT Int : 406 ms P-R-T Axes : 053 031 059 degrees QTc Int : 362 ms Sinus bradycardia Otherwise normal ECG Confirmed by JOHN ALICIA, NELLIE ([id number]), manuscript editor AJ BRICE ([id number]) on 07/13/2019 12:58:15 PM Referred By: SIMIN Confirmed By:NELLIE LOPEZ MD
[2019-07-09] MEDS: 0.9% Normal Saline 1,000 ML 1000 ML IV ×2 (16:20→17:25)
--- NOTE | 2019-07-09 16:24 | NURSING ---
1605: This RN called patient's , Loretta and informed her that patient is being transferred to the ED for further evaluation.
[2019-07-09] MEDS: Ondansetron 4 MG/2 ML Vial IV (16:32)
[2019-07-09 16:34] LABS: Absolute Lymphocyte Count 2.04 X10^3/uL (0.83-4.51); Absolute Neutrophil Count 8.5 X10^3/uL (2.0-7.7); Basophil# 0.03 X10^3/uL; Basophil% 0.3 % (0-1); Eosinophil# 0.06 X10^3/uL; Eosinophils% 0.5 % (0-5); Hematocrit 45.7 % (40-54); Hemoglobin 15.7 g/dL (13.0-16.5); Lymphocyte # 2.04 X10^3/ul (4.0); Lymphocyte % 17.5 % (19-41); Mean Corp Hgb Conc 34.4 g/dL (32-36); Mean Corpuscular Hgb 29.8 pg (27.0-32.0); Mean Corpuscular Volume 86.7 fL (80-94); Mean Platelet Vol. 9.5 fl (6.2-12.0); Monocyte# 0.96 X10^3/uL; Monocyte% 8.2 % (0-10); NRBC Flagged by Analyzer 0 % (0-5); Neutrophil # 8.54 X10^3/uL (2.7-7.7); Neutrophil % 73.1 % (47-70); Platelet Count 413 K/mm3 (150-450); RBC Distribution Width CV 12.4 % (11.6-14.6); RBC Distribution Width SD 39.3 fl (35.1-43.9); Red Blood Count 5.27 M/mm3 (4.6-6.2); White Blood Count 11.7 K/mm3 (4.4-11.0)
--- NOTE | 2019-07-09 16:36 | CT_ITS ---
STUDY: CT BRAIN WITHOUT CONTRAST REASON FOR EXAM: Male, 59 years old. Syncope and hypertension prostate cancer RADIATION DOSAGE (If Supplied By Facility): CTDIvol = ( 44.99 ) mGy, DLP = ( 796.11 ) mGycm TECHNIQUE: Transaxial CT imaging of the brain was performed without administration of intravenous contrast material. Individualized dose optimization techniques were used for this CT. COMPARISON: No relevant priors. FINDINGS: Brain parenchyma is without focal lesions, mass effect, acute intracranial hemorrhage, extra parenchymal fluid collections, hydrocephalus or herniation. The skull is intact. CT/Brain/Head without Contrast IMPRESSION: 1. Normal CT brain. Electronically Signed: Josh Collins, at 17:10 EST Tel , Service support ,
--- NOTE | 2019-07-09 16:49 | ED.DCSUM_ITS ---
History of Present Illness Chief Complaint: Syncope Detail of Chief Complaint: Also diarrhea Informant: Patient, - - Hospitalist who responded to the rapid response Onset: Today Context: Sudden Onset Timing: Intermittent Quality: Not feeling well, diarrhea, syncopal episode Location: Patient's room during consult Current Severity: Mild Maximum Severity: Severe Worsened by: Suspect vasovagal based on patient's description and vital signs Relieved by: Improved in supine position and administration of fluids Associated Symptoms: Nausea, warmth and collapse Narrative: Patient is a 59-year-old male who presents after single episode. He was in a room performing a consult. He was sitting in a chair. He remembers getting warm and he remembers waking up on the floor. He states the watermelon harvesting supervisor was shaking his arm and calling his name. He denies headache. He initially denied neck pain. He denies paresthesia, anesthesia or motor weakness. He is on no anticoagulant. He denies visual, ocular auditory symptoms. No trouble with speech. He has no chest pain or shortness of breath. He does complain of vague abdominal pain has had 6-7 loose watery stools without blood or mucus. He has not been on antibiotics recently. He has not had anything to eat that tasted unusual. He denied fever or chills. Prior similar symptoms: No Recent Illness/Hospitalization: No - Past Medical History (1) Intractable nausea and vomiting Status: Acute (2) Status post radical prostatectomy Status: Acute (3) Ectopic atrial tachycardia Status: Chronic (4) Hypertension Status: Chronic (5) Prostate cancer Status: Chronic Past Medical History - Allergies and Home Meds Allergies/Adverse Reactions: Allergies iodine Allergy (Verified 07/23/16 16:23) Rash Primary Care Physician: Lissy Mcmanus DO [Primary Care Provider] - Prior records reviewed: Yes Surgical History: - - Prostatectomy. Lives: Spouse/ Significant Other Smoking Status: Never smoker Drugs: None - Family History Maternal Family History: Reports: No pertinent history Paternal Family History: Reports: No pertinent history Review of Systems General: Reports: Malaise, Sweats. Denies: Chills, Fever, Subjective, Weight loss Eyes: Denies: Visual changes - bilaterally, Blurred Vision - bilaterally ENT: Denies: Rhinorrhea, Sore throat Cardiovascular: Denies: Chest pain, Palpitations Respiratory: Denies: Dyspnea, Cough, Dyspnea on exertion, Orthopnea, Paroxysmal nocturnal dyspnea Gastrointestinal: Reports: Abdominal pain, Nausea, Diarrhea. Denies: Vomiting, Melena, Hematochezia Genitourinary: Denies: Dysuria, Hematuria, Frequency Musculoskeletal: Denies: Myalgias, Arthralgias, Neck pain, Back pain, Swelling, Extremity Pain, -, - Skin: Denies: Rash, Wounds Neurological: Denies: Headache, Parasthesia, Numbness Hematologic: Denies: Easy bruising, Easy bleeding Physical Exam Vital Signs/Narrative: Vital Signs Temp Pulse Resp BP Pulse Ox 07/09/19 16:15 98.0 F 59 L 14 94/65 100 Inital Vital Signs reviewed: Yes General: Well nourished, Well developed, - - Initially appeared pale. His skin color improved during my time in the room with him obtaining a history and performing a physical exam. Head: Normocephalic, Atraumatic, - - No clinical findings of basilar skull fracture. Eyes: Perrl, EOMI, - - There is no subconjunctival hemorrhage noted. Negative for: Pale conjunctiva, Scleral icterus ENT: No rhinorrhea, TM's clear, Dry mucous membranes. Negative for: Nasal congestion Neck: Supple, Nontender, No lymphadenopathy, No JVD Cardiovascular: Regular rhythm, No murmurs, Normal S1, Normal S2, Bradycardia Respiratory: No distress, CTA bilaterally, Chest nontender Abdomen: Soft, Nondistended, Tender, Hyperactive bowel sounds. Negative for: Guarding, Rebound tenderness Rectal: Deferred Back: Nontender, Normal Inspection Extremities: Nontender, No edema Skin: Normal color, No rash, No Trauma. Negative for: Cyanosis, Diaphoresis, Jaundice Neurological: Alert, Oriented x3, Cranial nerves II-XII grossly intact, Normal Strength, Normal Sensation Psychological: Normal affect, Normal Mood Diagnostic/Tx/Re-eval 07/09/19 16:36 CT Brain [Brain/Head without Contrast] [CT] Stat Laboratory Results 07/09/19 07/09/19 07/09/19 16:21 16:21 16:21 WBC 11.7 H RBC 5.27 Hgb 15.7 Hct 45.7 MCV 86.7 MCH 29.8 MCHC 34.4 RDW Std Deviation 39.3 RDW Coeff of Terence 12.4 Plt Count 413 MPV 9.5 Immature Gran % (Auto) 0.400 Neut % (Auto) 73.1 H Lymph % (Auto) 17.5 L [place] % (Auto) 8.2 Eos % (Auto) 0.5 Baso % (Auto) 0.3 Absolute Neuts (auto) 8.5 H Absolute Lymphs (auto) 2.04 Nucleated RBC % 0 Sodium 139 Potassium 3.7 Chloride 104 Carbon Dioxide 24.0 Anion Gap 11 BUN 24 H Creatinine 1.16 Estim Creat Clear Calc 72.55 Est GFR (MDRD) Af Amer 83 Est GFR (MDRD) Non-Af 69 BUN/Creatinine Ratio 20.7 H Glucose 116 H Calcium 10.3 H Magnesium 2.4 Total Bilirubin 1.60 H Direct Bilirubin 0.31 H AST 15 ALT 31 Alkaline Phosphatase 78 Total Protein 8.0 Albumin 4.7 Globulin 3.3 T of the head has not been interpreted by radiologist. The CT of the head per my review reveals no skull fracture, epidural, subdural, traumatic subarachnoid hemorrhage or intraparenchymal contusion. There is a small retention cyst right maxillary sinus. Formal read is pending. Blood work would indicate prerenal azotemia/dehydration secondary to diarrhea. - Rhythm Strip Rhythm Strip: Sinus bradycardia - EKG Initial EKG Interpretation: Sinus Bradycardia - Bradycardia with a ventricular rate of 48. MA interval is 152 ms. QRS duration 98 ms. QT duration 406 ms. The EKG is normal other than a slow heart rate. - Medical Decision Making [place] CT head rule in [place] rule imaging of the head was not obtained. Basic metabolic panel was obtained as well as CBC. Clinically he appears dehydrated and complains of thirst. 2 L of normal saline was ordered. Patient initial blood pressure was low with a systolic of 94. Normal is 115?120 systolic. I was informed by Dr. Caitlin Jack that she ordered a CT of the head. I was then approached by echocardiography radiology technologist why I was not performing a CT of the neck. She was informed that he does not meet criteria for CT of the neck. I was later informed that the CT of the head was placed as a verbal order on my name. ED Disposition - Plan for ED Patient: Disposition: Acute Care Hospital [facility] Diagnosis: Vasovagal episode, Hypotension due to hypovolemia, Sinus bradycardia by electrocardiogram, Acute prerenal azotemia Referrals: Lissy Mcmanus DO [Primary Care Provider] -
[2019-07-09 16:54] LABS: Anion Gap 11 (5-15); BUN 24 mg/dL (7-18); BUN/Creat Ratio 20.7 RATIO (10-20); Calcium,Total 10.3 mg/dL (8.5-10.1); Chloride 104 mmol/L (98-107); Creatinine, Serum 1.16 mg/dL (0.70-1.30); EST Glomerular Filtration Rate 69 mL/min (>60); Est Glom Filt Rate - Afr Amer 83 mL/min (>60); Estimated Creatinine Clearance 72.55 ml/min; Glucose 116 mg/dL (74-106); Potassium 3.7 mmol/L (3.5-5.1); Sodium Level 139 mmol/L (136-145)
[2019-07-09 17:00] LABS: AST(SGOT) 15 U/L (15-37); Alanine Aminotransfer ALT/SGPT 31 U/L (16-61); Albumin, Serum 4.7 g/dL (3.2-5.0); Alkaline Phosphatase 78 U/L (45-117); Bilirubin, Direct 0.31 mg/dL (0.00-0.30); Globulin 3.3 g/dL (2.2-4.2); Magnesium 2.4 mg/dL (1.6-2.6)
--- NOTE | 2019-07-09 17:17 | PCM.HP.STD ---
Problem List (1) Acute renal failure Status: Deleted Comment: secondary to pre-renal azotemia (2) Gastroenteritis Status: Acute (3) Hypercalcemia Status: Acute (4) Hyperbilirubinemia Status: Chronic (5) Acute prerenal azotemia Status: Deleted (6) Hypotension due to hypovolemia Status: Acute (7) Sinus bradycardia by electrocardiogram Status: Acute (8) Severe dehydration Status: Deleted (9) Status post radical prostatectomy Status: Chronic (10) Ectopic atrial tachycardia Status: Chronic (11) Hypertension Status: Chronic (12) Prostate cancer Status: Chronic History of Present Illness Date of Admission: 07/09/19 Chief Complaint: diarhea, nausea and lightheadedness The patient is a 59 year old M with a past medical history of prostate cancer, hypertension and ectopic atrial tachycardia who had a syncopal episode today when he stood up. Admits to at least 7 liquid BM's today and has nausea but, no vomiting. He also has a crampy sensation in the abdomen. He fell to the floor and struck his head. He is on ASA 81 mg daily but not on an anticoagulant. He was assisted to a bed and he was very diaphoretic. Initial SYS BP lying down was 66 and the HR was in the 40's. He denied CP, SOB, VERDE, Palpitations. EKG showed SB with no ST elevation and no suspicious ST or T wave changes. An IV was was inserted and IV NS was hung. He was transported to the ED. lab was significant for an elevated BUN at 24 with a creatinine of 1.16. Creatinine in December 2018 was 0.81. BUN/creatinine ratio is 20.7. Total bili is increased at 1.6 and the calcium is increased at 10.3. Noncontrasted CT brain was negative for fracture or any other acute findings. He is being admitted to the hospital for hypotension, ARF and severe dehydration. Past Medical History Past Medical History (Chronic Problems): Chronic Problems Hyperbilirubinemia (Chronic) Status post radical prostatectomy (Chronic) Hypertension (Chronic) Ectopic atrial tachycardia (Chronic) Prostate cancer (Chronic) Allergies iodine Allergy (Verified 07/23/16 16:23) Rash Home Medications: Ambulatory Orders Medication Instructions Recorded Aspirin E.C. [Ecotrin] 81 mg PO DAILY@0800 05/29/15 Atorvastatin Calcium [Lipitor] 10 mg PO DAILY 05/29/15 Diltiazem CD [Cardizem CD] 240 mg PO DAILY 05/29/15 Lisinopril [Zestril] 10 mg PO DAILY 10/08/17 Tadalafil [Cialis] 5 mg PO QHS 10/08/17 Vitamin B Complex [B Complex] 1 ea PO DAILY 07/09/19 Surgical History: - - Prostatectomy. Psychiatric History: No pertinent psych hx Lives: Spouse/ Significant Other Smoking Status: Never smoker Tobacco Use: Non-smoker Alcohol: Occasional Drugs: None - *Family History Maternal History Items: No pertinent history Paternal History Items: No pertinent history Review of Systems Constitutional: Reports: Anorexia, Malaise, Weakness. Denies: Chills, Fever, Weight Change Eyes: Denies: Blurred vision HEENT: Reports: - - VERDE today after the syncopal episode and hitting his head.. Denies: Head Aches, Sinus Congestion, Sinus Drainage, Sore Throat Cardiovascular: Reports: Light Headedness. Denies: Chest Pain, Edema, Palpitations Respiratory: Denies: Cough, Shortness of Breath, Shortness of breath at rest, Sputum production Gastrointestinal: Reports: Diarrhea, Nausea. Denies: Abdominal Pain, Vomiting Genitourinary: Denies: Dysuria Musculoskeletal: Denies: Joint Pain, Joint Tenderness Skin: Denies: Rash, Wounds Neurological: Denies: Numbness, Tingling, Focal weakness Psychiatric: Denies: Anxiety, Depression, Homicidal Ideations, Suicidal Ideations Endocrine: Denies: Change in Body Habitus Hematologic/ Lymphatic: Denies: Easy Bruising, Easy Bleeding, Hx of blood clot VTE Information - Inpt Only VTE Present on Admission: No VTE Mechan Device Prophylaxis: None VTE Pharm Prophylaxis ordered?: No Reason prophylaxis not ordered:: Treatment Not Indicated - short admission is expected and he hit his head on the floor with the syncopal episode - Physical Exam Vitals/I&O's: Vital Signs Temp Pulse Resp BP Pulse Ox 98.0 F 59 L 14 94/65 100 07/09/19 16:15 07/09/19 16:15 07/09/19 16:15 07/09/19 16:15 07/09/19 16:15 Oxygen Delivery Method Room Air Weight: 170 lb 6.677 oz Body Mass Index (BMI) 24.4 General: Alert, Oriented x3, Cooperative, Well developed, Well nourished, - - he is very diaphoretic and pale HEENT: Atraumatic, PERRLA, EOMI, Normocephalic Oral: No Gingival or Mucosal Lesions/ Ulcerations, Dry Mucosa Neck: Supple, No JVD, Negative Carotid Bruits, No Nodes, Trachea Midline Lungs: Clear to auscultation, Normal air movement Cardiovascular: Regular Rhythm, Normal S1, Normal S2, No murmurs, Bradycardic, No rub noted, No Gallop Abdomen: Bowel Sounds Present, Soft, Non Tender, Non-Distended, - - no guarding with palpation Extremities: No clubbing, No cyanosis, No edema, Capillary Refill Less than 3 Seconds, - - hands and feet are cool to the touch Skin: No rashes, No breakdown Musculoskeletal: No Tenderness to Palpation of Joints or Extremities Neurological: Cranial nerves II-XII grossly intact, Neuro grossly intact Psych/Mental Status: Normal Affect, Appropriate Laboratory Results 07/09/19 16:21: WBC 11.7 H, RBC 5.27, Hgb 15.7, Hct 45.7, MCV 86.7, MCH 29.8, MCHC 34.4, RDW Std Deviation 39.3, RDW Coeff of Terence 12.4, Plt Count 413, MPV 9.5, Immature Gran % (Auto) 0.400, Neut % (Auto) 73.1 H, Lymph % (Auto) 17.5 L, [place] % (Auto) 8.2, Eos % (Auto) 0.5, Baso % (Auto) 0.3, Absolute Neuts (auto) 8.5 H, Absolute Lymphs (auto) 2.04, Nucleated RBC % 0 07/09/19 16:21: Sodium 139, Potassium 3.7, Chloride 104, Carbon Dioxide 24.0, Anion Gap 11, BUN 24 H, Creatinine 1.16, Estim Creat Clear Calc 72.55, Est GFR (MDRD) Af Amer 83, Est GFR (MDRD) Non-Af 69, BUN/Creatinine Ratio 20.7 H, Glucose 116 H, Calcium 10.3 H 07/09/19 16:21: Magnesium 2.4, Total Bilirubin 1.60 H, Direct Bilirubin 0.31 H, AST 15, ALT 31, Alkaline Phosphatase 78, Total Protein 8.0, Albumin 4.7, Globulin 3.3 Current Medications Sodium Chloride () 1,000 mls @ 1,000 mls/hr IV .Q1H PASHA Stop: 07/09/19 18:19 Last Admin: 07/09/19 16:20 Dose: 1,000 mls/hr Documented by: Assessment/Plan All Active Problems Hypotension due to hypovolemia (Acute) Sinus bradycardia by electrocardiogram (Acute) Gastroenteritis (Acute) Hypercalcemia (Acute) Impressions 1. syncope - more likely than not due to severe dehydration and bradycardia(on Cardizem CD 240 mg) 2. ARF due to dehydration/pre-renal azotemia 3. hypercalcemia due to dehydration 4. acute gastroenteritis 5. hx of paroxysmal atrial tachycardia on Cardizem Hydrate Check orthostatics in the AM Recheck the lab in the AM Up with assistance only Hold Lisinopril and Cardizem. Code Visit Inpatient E&M: 72254 Init Hosp L2
[2019-07-09] MEDS: Lactated Ringers 1,000 ML 150 ML IV (17:56)
[2019-07-09] MEDS: proCHLORPERazine 10 MG/2 ML Vial 5 MG IV ×2 (18:19→22:36)
[2019-07-09] MEDS: 0.9% Saline Lock 10 ML Syringe IV (22:36)
[2019-07-10] MEDS: Lactated Ringers 1,000 ML 150 ML IV ×2 (00:38→07:15)
[2019-07-10 02:49] VITALS: PULSE 61
[2019-07-10 04:20] VITALS: BP 104/54; BP 112/67; BP 115/68; PULSE 62; PULSE 68; PULSE 71; RESP 18; TEMP 36.8; O2SAT 98
[2019-07-10 06:31] LABS: Absolute Lymphocyte Count 1.23 X10^3/uL (0.83-4.51); Absolute Neutrophil Count 6.3 X10^3/uL (2.0-7.7); Basophil# 0.02 X10^3/uL; Basophil% 0.2 % (0-1); Eosinophil# 0.08 X10^3/uL; Eosinophils% 0.9 % (0-5); Hematocrit 39.3 % (40-54); Hemoglobin 13.4 g/dL (13.0-16.5); Lymphocyte # 1.23 X10^3/ul (4.0); Lymphocyte % 14.3 % (19-41); Mean Corp Hgb Conc 34.1 g/dL (32-36); Mean Corpuscular Hgb 30.1 pg (27.0-32.0); Mean Corpuscular Volume 88.3 fL (80-94); Mean Platelet Vol. 9.5 fl (6.2-12.0); Monocyte# 0.98 X10^3/uL; Monocyte% 11.4 % (0-10); NRBC Flagged by Analyzer 0 % (0-5); Neutrophil # 6.26 X10^3/uL (2.7-7.7); Neutrophil % 72.9 % (47-70); Platelet Count 304 K/mm3 (150-450); RBC Distribution Width CV 12.6 % (11.6-14.6); RBC Distribution Width SD 40.7 fl (35.1-43.9); Red Blood Count 4.45 M/mm3 (4.6-6.2); White Blood Count 8.6 K/mm3 (4.4-11.0)
[2019-07-10 07:03] VITALS: PULSE 58
[2019-07-10 07:50] LABS: ALB/GLOB Ratio 1.2 RATIO (0.9-2.4); AST(SGOT) 12 U/L (15-37); Alanine Aminotransfer ALT/SGPT 24 U/L (16-61); Albumin, Serum 3.4 g/dL (3.2-5.0); Alkaline Phosphatase 64 U/L (45-117); Anion Gap 4 (5-15); BUN 19 mg/dL (7-18); BUN/Creat Ratio 24.9 RATIO (10-20); Calcium,Total 8.1 mg/dL (8.5-10.1); Chloride 111 mmol/L (98-107); Creatinine, Serum 0.76 mg/dL (0.70-1.30); EST Glomerular Filtration Rate 112 mL/min (>60); Est Glom Filt Rate - Afr Amer 135 mL/min (>60); Estimated Creatinine Clearance 107.24 ml/min; Globulin 2.8 g/dL (2.2-4.2); Glucose 118 mg/dL (74-106); Magnesium 2.1 mg/dL (1.6-2.6); Phosphorus 2.9 mg/dL (2.5-4.9); Potassium 4.1 mmol/L (3.5-5.1); Protein, Total 6.2 g/dL (6.4-8.2); Sodium Level 137 mmol/L (136-145); Thyroid Stim Hormone (TSH) 2.11 uIU/mL (0.358-3.74)
[2019-07-10 10:00] VITALS: BP 115/66; PULSE 73; RESP 16; TEMP 36.8; O2SAT 97
[2019-07-10] MEDS: Aspirin E.C. 81 MG Tablet PO (10:00)
[2019-07-10 10:50] LABS: Hemoglobin A1c 5.4 % (4.2-6.3)
--- NOTE | 2019-07-10 11:22 | DCINST_ITS ---
- Discharge Diagnoses Current Active Problems: Current Active and Chronic Problems Hypotension due to hypovolemia (Acute) Sinus bradycardia by electrocardiogram (Acute) Acute prerenal azotemia (Acute) Acute renal failure (Acute) secondary to pre-renal azotemia Gastroenteritis (Acute) Hypercalcemia (Acute) Hyperbilirubinemia (Acute) You will use the following diet at home:: Cardiac Your food should be the consistency of: Regular Discharge Activity: Return to Normal Activity Weight Bearing Status: Weight bearing as tolerated Call your doctor if you observe: Fever of 101 or Higher, Shortness of breath, Dizziness, Fainting spells, Chest pain, Increased palpitations (irregular heartbeat), Uncontrolled pain Allergies/Adverse Reactions: Allergies adhesive tape Allergy (Verified 07/09/19 17:59) Rash iodine Allergy (Verified 07/23/16 16:23) Rash Medications to take at Discharge Aspirin E.C. [Ecotrin] 81 mg PO DAILY@0800 05/29/15 Atorvastatin Calcium [Lipitor] 10 mg PO DAILY 05/29/15 Diltiazem CD [Cardizem CD] 240 mg PO DAILY 05/29/15 Lisinopril [Zestril] 10 mg PO DAILY 10/08/17 Tadalafil [Cialis] 5 mg PO QHS 10/08/17 Vitamin B Complex [B Complex] 1 ea PO DAILY 07/09/19 Primary Care Physician: Lissy Mcmanus DO [Primary Care Provider] - Please follow up with your Primary Care Physician in: as scheduled. Test Results: Test results from this visit will be discussed in further detail at your follow- up appointment, if applicable.
--- NOTE | 2019-07-10 12:12 | DS.PCM_ITS ---
Discharge Date and Diagnosis - Problem List Patient Problems: Active and Suspected Problems Hypotension due to hypovolemia (Acute) Sinus bradycardia by electrocardiogram (Acute) Gastroenteritis (Acute) Hypercalcemia (Acute) Date of Admission: 07/09/19 Date of Discharge: 07/10/19 - Primary Discharge Diagnosis Active and Suspected Problems #1 vasovagal syncope. #2 severe dehydration. #3 gastroenteritis, probably viral. #4 hypercalcemia due to dehydration. #5 sinus bradycardia. - Secondary Discharge Diagnosis Chronic Problems Hypertension (Chronic) Ectopic atrial tachycardia (Chronic) Prostate cancer (Chronic) Hospital Course and Treatment Imaging Results: Clinical Impression(s) from Imaging Studies Brain CT 07/09/19 16:36 IMPRESSION: 1. Normal CT brain. Electronically Signed: Josh Collins, at 17:10 EST Tel , Service support , Operations: None Procedures: EKG Summary of Care Provided: Patient was seen and examined on the day of discharge and appeared to be stable to be discharged home. He denies any more dizziness or lightheadedness. Still having some diarrhea but improved. Denies fever chills. Denied chest pain or shortness of breath. He ambulated and he did very well without any symptoms. Heart rate improved, has been in the high 50s to 60s, blood pressure stable. Orthostatic vitals were unremarkable. The patient is a 59 year old M patient was admitted because of vasovagal syncope which is attributed to severe dehydration secondary to viral gastroenteritis. Patient had syncopal episode, passed out. He has been having diarrhea with poor oral intake. He was found to be bradycardic with heart rate in the low 50s on EKG without evidence of other acute findings or acute cardiac arrhythmias. On admission, routine blood work revealed mild leukocytosis, BUN of 24 and creatinine of 1.16 which was 0.81 on December,. He was found to have calcium of 10.3 mg/dL which was attributed to severe dehydration, was treated with IV fluids and serum calcium returned back to normal. CT scan brain done because patient had mechanical fall and hit his head and that CAT scan showed no acute findings. Patient was treated with IV fluids. His blood pressure improved as well as heart rate. Cardizem and lisinopril held during this hospital stay. LFT was unremarkable except elevated bilirubin which is chronic but liver transaminases and alkaline phosphatase were normal. TSH was normal. Patient had blood sugar of 118 and he was concerned about diabetes. Hemoglobin A1c done and it was 5.4. With IV fluids, patient symptoms improved and he ambulated without any symptoms. Orthostatic vitals today were unremarkable. Patient discharged home in a stable condition, instructed not to take Cardizem and lisinopril today, resume home medications tomorrow, follow-up with PCP as scheduled. Patient Problems: Active and Suspected Problems Hypotension due to hypovolemia (Acute) Sinus bradycardia by electrocardiogram (Acute) Gastroenteritis (Acute) Hypercalcemia (Acute) - Physical Exam Vitals/I&O's: Vital Signs Temp Pulse Resp BP Pulse Ox 98.2 F 73 16 115/66 97 07/10/19 10:00 07/10/19 10:00 07/10/19 10:00 07/10/19 10:00 07/10/19 10:00 Oxygen Delivery Method Room Air Weight: 167 lb 12.348 oz Body Mass Index (BMI) 24.7 Orthostatic Vital Signs Start: 07/09/19 18:26 Freq: q24h Status: Active Protocol: Activity Type Activity Date Activity User E-Sign Co-Sign Detail Recorded Client Recorded Date Recorded By Document 07/10/19 04[id number] 07/10/19 04[facility]22 [facility] 07/10/19 04:20 Orthostatic Vitals Standing -Blood Pressure (90/60-120/80) 112/67 -Extremity Use Left Arm -Pulse Rate (60-100) 71 Sitting -Blood Pressure (90/60-120/80) 115/68 -Extremity Use Left Arm -Pulse Rate (60-100) 68 Lying -Blood Pressure (90/60-120/80) 104/54 L -Extremity Use Left Arm -Pulse Rate (60-100) 62 Intake and Output for Last 24 Hours 07/08/19 07/09/19 07/10/19 23:59 23:59 23:59 Intake Total 2119 2942.5 / 2942.5 Balance 2119 2942.5 / 2942.5 General: Alert, Oriented x3, Cooperative, No apparent distress HEENT: Atraumatic, PERRLA, EOMI, Normocephalic Oral: Moist Mucosa, No Gingival or Mucosal Lesions/ Ulcerations Neck: Supple, No JVD, Negative Carotid Bruits, Trachea Midline, Thyroid Normal Size and Texture Lungs: Clear to auscultation, Normal air movement, No rhonchi, No wheeze, No rales Cardiovascular: Regular rate, Regular Rhythm, Normal S1, Normal S2, PMI Normal Abdomen: Bowel Sounds Present, Soft, Non Tender, Non-Distended, No Hepato- splenomegaly Extremities: No clubbing, No cyanosis, No edema Skin: No rashes, No breakdown Lymphatic: No Cervical, Supraclavicular, or Inguinal Adenopathy Neurological: Cranial nerves II-XII grossly intact, Neuro grossly intact Psych/Mental Status: Normal Affect, Appropriate Microbiology Past 72 Hours 07/10/19 04:00 Stool Enteric Bacteriology - Final Laboratory Results 07/09/19 16:21: WBC 11.7 H, RBC 5.27, Hgb 15.7, Hct 45.7, MCV 86.7, MCH 29.8, MCHC 34.4, RDW Std Deviation 39.3, RDW Coeff of Terence 12.4, Plt Count 413, MPV 9.5, Immature Gran % (Auto) 0.400, Neut % (Auto) 73.1 H, Lymph % (Auto) 17.5 L, [place] % (Auto) 8.2, Eos % (Auto) 0.5, Baso % (Auto) 0.3, Absolute Neuts (auto) 8.5 H, Absolute Lymphs (auto) 2.04, Nucleated RBC % 0 07/09/19 16:21: Sodium 139, Potassium 3.7, Chloride 104, Carbon Dioxide 24.0, Anion Gap 11, BUN 24 H, Creatinine 1.16, Estim Creat Clear Calc 72.55, Est GFR (MDRD) Af Amer 83, Est GFR (MDRD) Non-Af 69, BUN/Creatinine Ratio 20.7 H, Glucose 116 H, Calcium 10.3 H 07/09/19 16:21: Magnesium 2.4, Total Bilirubin 1.60 H, Direct Bilirubin 0.31 H, AST 15, ALT 31, Alkaline Phosphatase 78, Total Protein 8.0, Albumin 4.7, G lobulin 3.3 07/10/19 05:57: WBC 8.6, RBC 4.45 L, Hgb 13.4, Hct 39.3 L, MCV 88.3, MCH 30.1, MCHC 34.1, RDW Std Deviation 40.7, RDW Coeff of Terence 12.6, Plt Count 304, MPV 9.5, Immature Gran % (Auto) 0.300, Neut % (Auto) 72.9 H, Lymph % (Auto) 14.3 L, [place] % (Auto) 11.4 H, Eos % (Auto) 0.9, Baso % (Auto) 0.2, Absolute Neuts (auto) 6.3, Absolute Lymphs (auto) 1.23, Nucleated RBC % 0 07/10/19 05:57: Sodium 137, Potassium 4.1, Chloride 111 H, Carbon Dioxide 22.0, Anion Gap 4 L, BUN 19 H, Creatinine 0.76, Estim Creat Clear Calc 107.24, Est GFR (MDRD) Af Amer 135, Est GFR (MDRD) Non-Af 112, BUN/Creatinine Ratio 24.9 H, Glucose 118 H, Calcium 8.1 L, Phosphorus 2.9, Magnesium 2.1, Total Bilirubin 1.80 H, AST 12 L, ALT 24, Alkaline Phosphatase 64, Total Protein 6.2 L, Albumin 3.4, Globulin 2.8, Albumin/Globulin Ratio 1.2, TSH 2.11 07/10/19 05:57: Hemoglobin A1c 5.4 Current Medications Acetaminophen (Tylenol) 650 mg PO Q6H PRN PRN PRN Reason: Pain Score 1-3/Temp > 100.7 F Al Hydroxide/Mg Hydroxide (Mylanta Ii) 30 ml PO Q6H PRN PRN PRN Reason: Gastric Burning Aspirin (Ecotrin) 81 mg PO DAILY@0800 [facility] Last Admin: 07/10/19 10:00 Dose: 81 mg Documented by: Atorvastatin Calcium (Lipitor) 10 mg PO DAILY@2200 [facility] Last Admin: 07/09/19 18:15 Dose: Not Given Documented by: Lactated Ringer's () 1,000 mls @ 150 mls/hr IV .Q6H40M [facility] Last Infusion: 07/10/19 11:59 Dose: Infused Documented by: Sodium Chloride () 250 mls @ 15 mls/hr IV .[id number] PRN PRN Reason: Saline Flush Morphine Sulfate () 2 mg IV Q3H PRN PRN PRN Reason: Pain Score 6-10/10 Nitroglycerin (Nitrostat) 0.4 mg SUBLINGUAL Q5M PRN PRN Reason: CARDIAC/CHEST PAIN Ondansetron HCl (Zofran) 4 mg IV Q6H PRN PRN PRN Reason: NAUSEA/VOMITING Oxycodone HCl (Oxyir) 5 - 10 mg PO Q4H PRN PRN PRN Reason: Pain Score 4-5/10 Prochlorperazine Edisylate (Compazine Iv) 5 mg IV Q4H PRN PRN PRN Reason: Breakthrough Nausea/Vomiting Last Admin: 07/09/19 22:36 Dose: 5 mg Documented by: Sodium Chloride () 10 - 40 ml IV UD PRN PRN Reason: SALINE FLUSH Last Admin: 07/09/19 22:36 Dose: 10 ml Documented by: Zolpidem Tartrate (Ambien (Generic)) 5 mg PO QHS PRN PRN PRN Reason: INSOMNIA Discharge Activity: Return to Normal Activity Weight Bearing Status: Weight bearing as tolerated Call your doctor if you observe: Fever of 101 or Higher, Shortness of breath, Dizziness, Fainting spells, Chest pain, Increased palpitations (irregular heartbeat), Uncontrolled pain Home Medications: Medications to take at Discharge Aspirin E.C. [Ecotrin] 81 mg PO DAILY@0800 05/29/15 Atorvastatin Calcium [Lipitor] 10 mg PO DAILY 05/29/15 Diltiazem CD [Cardizem CD] 240 mg PO DAILY 05/29/15 Lisinopril [Zestril] 10 mg PO DAILY 10/08/17 Tadalafil [Cialis] 5 mg PO QHS 10/08/17 Vitamin B Complex [B Complex] 1 ea PO DAILY 07/09/19 Primary Care Physician: Lissy Mcmanus DO [Primary Care Provider] - Please follow up with your Primary Care Physician in: as scheduled. Disposition: Home Medical Necessity - Tobacco Use Smoking Status: Never smoker Meaningful Use Info Meaningful Use Diagnoses (Choose all that apply): None applicable
[2019-07-14 07:16] LABS: Bedside Glucose 107 mg/dL (70-110)
== END 2019-07-10 12:15 | disposition home or self-care (01) ==
LOC: ED 17:10 → PCU 07-10 07:16
PROVIDERS: Admitting Provider Internal Medicine; Emergency Provider Emergency Medicine; Family Provider Internal Medicine; PCP Internal Medicine; Visit Provider Hospitalist
DX: R55 Syncope and collapse (principal); A08.4 Viral intestinal infection, unspecified; E86.0 Dehydration; E86.1 Hypovolemia; R00.1 Bradycardia, unspecified; E83.52 Hypercalcemia; I10 Essential (primary) hypertension; Z85.46 Personal history of malignant neoplasm of prostate; I47.1 Supraventricular tachycardia; Z79.899 Other long term (current) drug therapy; Z79.82 Long term (current) use of aspirin; N17.9 Acute kidney failure, unspecified
CPT/HCPCS: 36415; 70450; 80048; 80053; 80076; 82962; 83036; 83735; 84100; 84443; 85025; 87506; 93005; 96361; 96374; 96375; 96376; 97161; 99218; 99285; J7030; J7120; A4216; G0378; J2405

== ENCOUNTER → 2019-07-13 08:00 | Outpatient (CLI) | payer OTHER, SELFPAY ==
[2019-07-09 18:07] VITALS: BMI 24.7
[2019-07-13 09:06] LABS: Color, Urine Yellow (Yellow); Glucose, Dipstick Normal (Normal); Ketone-Dipstick Negative (Negative); Leukocyte Esterase-Dipstick Negative /ul (Negative); Nitrite-Dipstick Negative (Negative); Occult Blood-Urine 10 /ul (Negative); Protein-Dipstick Negative (Negative); Urine Bilirubin Dipstick Negative (Negative); Urine Clarity Clear (Clear); Urine Urobilinogen Normal (Normal)
[2019-07-13 09:08] LABS: Absolute Lymphocyte Count 1.25 X10^3/uL (0.83-4.51); Absolute Neutrophil Count 2.6 X10^3/uL (2.0-7.7); Basophil# 0.03 X10^3/uL; Basophil% 0.6 % (0-1); Eosinophil# 0.08 X10^3/uL; Eosinophils% 1.7 % (0-5); Hematocrit 39.1 % (40-54); Hemoglobin 13.4 g/dL (13.0-16.5); Lymphocyte # 1.25 X10^3/ul (4.0); Lymphocyte % 27.1 % (19-41); Mean Corp Hgb Conc 34.3 g/dL (32-36); Mean Corpuscular Hgb 29.9 pg (27.0-32.0); Mean Corpuscular Volume 87.3 fL (80-94); Mean Platelet Vol. 9.7 fl (6.2-12.0); Monocyte# 0.64 X10^3/uL; Monocyte% 13.9 % (0-10); NRBC Flagged by Analyzer 0 % (0-5); Neutrophil # 2.61 X10^3/uL (2.7-7.7); Neutrophil % 56.5 % (47-70); Platelet Count 272 K/mm3 (150-450); RBC Distribution Width CV 12.3 % (11.6-14.6); RBC Distribution Width SD 39.4 fl (35.1-43.9); Red Blood Count 4.48 M/mm3 (4.6-6.2); White Blood Count 4.6 K/mm3 (4.4-11.0)
[2019-07-13 09:24] LABS: Microalbumin,Random Urine 16.1 mg/L (NO RANGE EST.); Microalbumin:Creatinine Ratio 9.1 mg/g CRE (<30 mg/g CRE)
[2019-07-13 09:43] LABS: ALB/GLOB Ratio 1.3 RATIO (0.9-2.4); AST(SGOT) 20 U/L (15-37); Alanine Aminotransfer ALT/SGPT 33 U/L (16-61); Albumin, Serum 4.4 g/dL (3.2-5.0); Alkaline Phosphatase 70 U/L (45-117); Anion Gap 6 (5-15); BUN 14 mg/dL (7-18); BUN/Creat Ratio 17.4 RATIO (10-20); Chloride 102 mmol/L (98-107); Creatinine, Serum 0.81 mg/dL (0.70-1.30); EST Glomerular Filtration Rate 105 mL/min (>60); Est Glom Filt Rate - Afr Amer 127 mL/min (>60); Globulin 3.4 g/dL (2.2-4.2); Glucose 95 mg/dL (74-106); Potassium 3.5 mmol/L (3.5-5.1); Protein, Total 7.8 g/dL (6.4-8.2); Sodium Level 138 mmol/L (136-145); Thyroid Stim Hormone (TSH) 2.08 uIU/mL (0.358-3.74)
[2019-07-13 09:45] LABS: Vitamin B12 533 pg/mL (211-911)
[2019-07-14 16:07] LABS: CHOLESTEROL TOTAL 133 mg/dL (100-199); HDL-C 50 mg/dL (>39); HDL-P TOTAL 30.7 umol/L (>=30.5); SMALL LDL-P 393 nmol/L (<=527); TRIGLYCERIDES 107 mg/dL (0-149)
[2019-07-15 16:39] LABS: INSULIN RESISTANCE SCORE 47 (<=45); LDL SIZE 20.2 nm (>20.5); LDL-C 62 mg/dL (0-99); LDL-P 706 nmol/L (<1000)
== END ==
LOC: LAB.FUTURE 08:03 → LAB 08:04
PROVIDERS: Family Provider Internal Medicine; PCP Internal Medicine; Referring Provider Internal Medicine; Visit Provider Internal Medicine
DX: R03.0 Elevated blood-pressure reading, without diagnosis of hypertension (principal)
CPT/HCPCS: 36415; 80053; 80061; 81002; 82043; 82570; 82607; 83704; 84443; 85025

== ENCOUNTER → 2020-01-18 13:55 | Outpatient (CLI) | payer OTHER, SELFPAY ==
[2019-07-09 18:07] VITALS: BMI 24.7
[2020-01-18 14:31] LABS: Absolute Lymphocyte Count 1.57 X10^3/uL (0.83-4.51); Absolute Neutrophil Count 5.7 X10^3/uL (2.0-7.7); Basophil# 0.04 X10^3/uL; Basophil% 0.5 % (0-1); Color, Urine Yellow (Yellow); Eosinophil# 0.07 X10^3/uL; Eosinophils% 0.9 % (0-5); Glucose, Dipstick Normal (Normal); Hematocrit 41.6 % (40-54); Hemoglobin 13.7 g/dL (13.0-16.5); Ketone-Dipstick Negative (Negative); Leukocyte Esterase-Dipstick Negative /ul (Negative); Lymphocyte # 1.57 X10^3/ul (4.0); Lymphocyte % 19.2 % (19-41); Mean Corp Hgb Conc 32.9 g/dL (32-36); Mean Corpuscular Hgb 29.9 pg (27.0-32.0); Mean Corpuscular Volume 90.8 fL (80-94); Mean Platelet Vol. 9.5 fl (6.2-12.0); Monocyte# 0.76 X10^3/uL; Monocyte% 9.3 % (0-10); NRBC Flagged by Analyzer 0 % (0-5); Neutrophil # 5.71 X10^3/uL (2.7-7.7); Neutrophil % 69.7 % (47-70); Nitrite-Dipstick Negative (Negative); Occult Blood-Urine 10 /ul (Negative); Platelet Count 259 K/mm3 (150-450); Protein-Dipstick 15 mg/dl (Negative); RBC Distribution Width CV 12.7 % (11.6-14.6); RBC Distribution Width SD 41.5 fl (35.1-43.9); Red Blood Count 4.58 M/mm3 (4.6-6.2); Specific Gravity, Urine 1.015 (1.002-1.030); Urine Bilirubin Dipstick Negative (Negative); Urine Clarity Clear (Clear); Urine Urobilinogen Normal (Normal); White Blood Count 8.2 K/mm3 (4.4-11.0)
[2020-01-18 14:53] LABS: Microalbumin,Random Urine 21.5 mg/L (NO RANGE EST.); Microalbumin:Creatinine Ratio 8.4 mg/g CRE (<30 mg/g CRE)
[2020-01-18 15:05] LABS: ALB/GLOB Ratio 1.2 RATIO (0.9-2.4); AST(SGOT) 17 U/L (15-37); Alanine Aminotransfer ALT/SGPT 29 U/L (16-61); Albumin, Serum 4.3 g/dL (3.2-5.0); Alkaline Phosphatase 75 U/L (45-117); Anion Gap 5 (5-15); BUN 19 mg/dL (7-18); BUN/Creat Ratio 23.5 RATIO (10-20); Calcium,Total 9.3 mg/dL (8.5-10.1); Chloride 106 mmol/L (98-107); Cholesterol 159 mg/dL (200); Creatinine, Serum 0.81 mg/dL (0.70-1.30); EST Glomerular Filtration Rate 105 mL/min (>60); Est Glom Filt Rate - Afr Amer 126 mL/min (>60); Globulin 3.7 g/dL (2.2-4.2); Glucose 94 mg/dL (74-106); High Density Lipoprotein 55 mg/dL; Potassium 4.4 mmol/L (3.5-5.1); Sodium Level 140 mmol/L (136-145); Thyroid Stim Hormone (TSH) 2.01 uIU/mL (0.358-3.74); Triglycerides 154 mg/dL; Very Low Density Lipoprotein 31 mg/dL (5-40); Vitamin B12 601 pg/mL (211-911)
== END ==
PROVIDERS: PCP Internal Medicine; Referring Provider Internal Medicine; Visit Provider Internal Medicine
DX: E53.8 Deficiency of other specified B group vitamins (principal); E78.49 Other hyperlipidemia
CPT/HCPCS: 36415; 80053; 80061; 81002; 82043; 82570; 82607; 84443; 85025

== ENCOUNTER → 2020-02-02 12:46 | Outpatient (CLI) | payer OTHER, SELFPAY ==
[2019-07-09 18:07] VITALS: BMI 24.7
[2020-02-02 13:01] LABS: Bacteria 0 SEEN /hpf (None Seen); Mucous, Urine 0 SEEN /hpf (<or=2+); Red Blood Cells-Urine 0 SEEN /hpf (0-5); Squamous Epithelial Cells - UA 0 SEEN /hpf (0-5); White Blood Cells 0 SEEN /hpf (0-5)
[2020-02-02 13:25] LABS: Color, Urine Yellow (Yellow); Glucose, Dipstick Normal (Normal); Ketone-Dipstick Negative (Negative); Leukocyte Esterase-Dipstick Negative /ul (Negative); Nitrite-Dipstick Negative (Negative); Occult Blood-Urine Negative /ul (Negative); Protein-Dipstick Negative (Negative); Urine Bilirubin Dipstick Negative (Negative); Urine Clarity Clear (Clear); Urine Urobilinogen Normal (Normal); Urine pH 6.5 (5.0 - 8.0)
== END ==
PROVIDERS: PCP Internal Medicine
DX: R82.90 Unspecified abnormal findings in urine (principal); Z85.46 Personal history of malignant neoplasm of prostate
CPT/HCPCS: 81001

== ENCOUNTER → 2020-07-19 07:55 | Outpatient (CLI) | payer OTHER, SELFPAY ==
[2019-07-09 18:07] VITALS: BMI 24.7
== END ==
PROVIDERS: PCP Internal Medicine; Referring Provider Internal Medicine; Visit Provider Internal Medicine
DX: Z20.828 Contact with and (suspected) exposure to other viral communicable diseases (principal)
CPT/HCPCS: 87635; C9803; U0002

== ENCOUNTER → 2021-01-15 11:55 | Outpatient (CLI) | payer OTHER, SELFPAY ==
[2019-07-09 18:07] VITALS: BMI 24.7
[2021-01-15 12:02] LABS: Bacteria 0 SEEN /hpf (None Seen); Mucous, Urine 0 SEEN /hpf (<or=2+); Squamous Epithelial Cells - UA 0 SEEN /hpf (0-5); White Blood Cells 0 SEEN /hpf (0-5)
[2021-01-15 12:23] LABS: Color, Urine Yellow (Yellow); Glucose, Dipstick Normal (Normal); Ketone-Dipstick Negative (Negative); Leukocyte Esterase-Dipstick Negative /ul (Negative); Nitrite-Dipstick Negative (Negative); Occult Blood-Urine 10 /ul (Negative); Protein-Dipstick Negative (Negative); Urine Bilirubin Dipstick Negative (Negative); Urine Clarity Clear (Clear); Urine Urobilinogen Normal (Normal)
[2021-01-15 12:24] LABS: Absolute Lymphocyte Count 1.21 X10^3/uL (0.83-4.51); Absolute Neutrophil Count 3.2 X10^3/uL (2.0-7.7); Basophil# 0.03 X10^3/uL; Basophil% 0.6 % (0-1); Eosinophil# 0.04 X10^3/uL; Eosinophils% 0.8 % (0-5); Hematocrit 42.3 % (40-54); Hemoglobin 14.3 g/dL (13.0-16.5); Lymphocyte # 1.21 X10^3/ul (0.83-4.51); Lymphocyte % 24.3 % (19-41); Mean Corp Hgb Conc 33.8 g/dL (32-36); Mean Corpuscular Hgb 30.1 pg (27.0-32.0); Mean Corpuscular Volume 89.1 fL (80-94); Mean Platelet Vol. 9.7 fl (6.2-12.0); Monocyte# 0.45 X10^3/uL; NRBC Flagged by Analyzer 0 % (0-5); Neutrophil # 3.23 X10^3/uL (2.7-7.7); Neutrophil % 64.9 % (47-70); Platelet Count 266 K/mm3 (150-450); RBC Distribution Width CV 12.3 % (11.6-14.6); RBC Distribution Width SD 40.5 fl (35.1-43.9); Red Blood Count 4.75 M/mm3 (4.6-6.2)
[2021-01-15 12:46] LABS: Microalbumin,Random Urine 5.2 mg/L (NO RANGE EST.); Microalbumin:Creatinine Ratio 8.7 mg/g CRE (<30 mg/g CRE)
[2021-01-15 12:47] LABS: Red Blood Cells-Urine 0-5 SEEN /hpf (0-5)
[2021-01-15 13:04] LABS: ALB/GLOB Ratio 1.3 RATIO (0.9-2.4); AST(SGOT) 21 U/L (15-37); Alanine Aminotransfer ALT/SGPT 39 U/L (16-61); Albumin, Serum 4.5 g/dL (3.2-5.0); Alkaline Phosphatase 74 U/L (45-117); Anion Gap 6 (5-15); BUN 18 mg/dL (7-18); BUN/Creat Ratio 21.8 RATIO (10-20); Calcium,Total 9.2 mg/dL (8.5-10.1); Chloride 104 mmol/L (98-107); Cholesterol 168 mg/dL (200); Creatinine, Serum 0.82 mg/dL (0.70-1.30); EST Glomerular Filtration Rate 102 mL/min (>60); Est Glom Filt Rate - Afr Amer 123 mL/min (>60); Globulin 3.5 g/dL (2.2-4.2); Glucose 96 mg/dL (74-106); High Density Lipoprotein 65 mg/dL; Potassium 3.9 mmol/L (3.5-5.1); Sodium Level 139 mmol/L (136-145); Triglycerides 175 mg/dL; Very Low Density Lipoprotein 35 mg/dL (5-40)
[2021-01-15 13:10] LABS: Vitamin B12 584 pg/mL (211-911)
== END ==
PROVIDERS: PCP Internal Medicine; Referring Provider Internal Medicine; Visit Provider Internal Medicine
DX: E78.49 Other hyperlipidemia (principal); E53.8 Deficiency of other specified B group vitamins; R80.8 Other proteinuria; C61 Malignant neoplasm of prostate
CPT/HCPCS: 36415; 80053; 80061; 81001; 82043; 82570; 82607; 85025

== ENCOUNTER → 2021-01-22 11:14 | Outpatient (CLI) | payer OTHER, SELFPAY ==
[2019-07-09 18:07] VITALS: BMI 24.7
[2021-01-22 11:20] LABS: Bacteria 0 SEEN /hpf (None Seen); Mucous, Urine 0 SEEN /hpf (<or=2+); Squamous Epithelial Cells - UA 0 SEEN /hpf (0-5); White Blood Cells 0 SEEN /hpf (0-5)
[2021-01-22 11:50] LABS: Color, Urine Yellow (Yellow); Glucose, Dipstick Normal (Normal); Ketone-Dipstick Negative (Negative); Leukocyte Esterase-Dipstick Negative /ul (Negative); Nitrite-Dipstick Negative (Negative); Occult Blood-Urine 10 /ul (Negative); Protein-Dipstick Negative (Negative); Urine Bilirubin Dipstick Negative (Negative); Urine Clarity Sl. Cloudy (Clear); Urine Urobilinogen Normal (Normal); Urine pH 6.5 (5.0 - 8.0)
[2021-01-22 11:58] LABS: Red Blood Cells-Urine 0-5 SEEN /hpf (0-5)
== END ==
PROVIDERS: PCP Internal Medicine; Referring Provider Internal Medicine; Visit Provider Internal Medicine
DX: R31.9 Hematuria, unspecified (principal)
CPT/HCPCS: 81001

== ENCOUNTER 2021-04-05 20:05 | Emergency (ER) | payer OTHER, SELFPAY ==
[2021-04-05 20:05] VITALS: BP 134/91; PULSE 95; RESP 18; TEMP 36.8; O2SAT 99; BMI 24.7
[2021-04-05] MEDS: Ondansetron 4 MG/2 ML Vial IV (20:35)
[2021-04-05] MEDS: 0.9% Normal Saline 1,000 ML 1000 ML IV ×2 (20:37→21:42)
[2021-04-05 20:48] LABS: Absolute Lymphocyte Count 0.61 X10^3/uL (0.83-4.51); Basophil# 0.03 X10^3/uL; Basophil% 0.3 % (0-1); Hematocrit 42.6 % (40-54); Hemoglobin 14.5 g/dL (13.0-16.5); Lymphocyte # 0.61 X10^3/ul (0.83-4.51); Lymphocyte % 5.5 % (19-41); Mean Corpuscular Hgb 30.1 pg (27.0-32.0); Mean Corpuscular Volume 88.4 fL (80-94); Mean Platelet Vol. 9.8 fl (6.2-12.0); Monocyte# 0.38 X10^3/uL; Monocyte% 3.4 % (0-10); NRBC Flagged by Analyzer 0 % (0-5); Neutrophil # 9.95 X10^3/uL (2.7-7.7); Neutrophil % 90.3 % (47-70); Platelet Count 336 K/mm3 (150-450); RBC Distribution Width CV 12.3 % (11.6-14.6); RBC Distribution Width SD 39.8 fl (35.1-43.9); Red Blood Count 4.82 M/mm3 (4.6-6.2)
[2021-04-05 21:03] LABS: Anion Gap 7 (5-15); BUN 24 mg/dL (7-18); BUN/Creat Ratio 24.8 RATIO (10-20); Calcium,Total 10.3 mg/dL (8.5-10.1); Chloride 102 mmol/L (98-107); Creatinine, Serum 0.97 mg/dL (0.70-1.30); EST Glomerular Filtration Rate 85 mL/min (>60); Est Glom Filt Rate - Afr Amer 102 mL/min (>60); Estimated Creatinine Clearance 80.31 ml/min; Glucose 157 mg/dL (74-106); Potassium 4.2 mmol/L (3.5-5.1); Sodium Level 136 mmol/L (136-145)
--- NOTE | 2021-04-05 21:10 | EDS_ITS ---
HPI HPI - GI History of Present Illness Chief Complaint: Abd Pain Detail of Chief Complaint: Bilateral lower abdominal pain with vomiting diarrhea Informant: patient and spouse/S.O. Abdominal Pain/Flank Pain Onset: Hours Context: Sudden Onset Timing: Continuous and Waxes and wanes Quality: Cramping Location: RLQ and LLQ Current Severity: Mild Maximum Severity: Moderate Worsened by: - (Diarrhea) Relieved by: Nothing Nausea/Vomiting/Emesis GI Symptom: Positive for Nausea and Vomiting Onset: Hours (12 times per patient) Diarrhea/Melena/Hematochezia GI Symptom: Positive for Diarrhea; Negative for Melena and Hematochezia Onset: Hours (5 times since onset) Stool Quality: Positive for Loose and Watery Associated Symptoms Associated Symptoms: Negative for Dysuria, Frequency and Hematuria Narrative Narrative: Patient is a middle-age male with history of prostate cancer, hypertension, hyperbilirubinemia who presents with bilateral lower abdominal cramping pain associated with diarrhea followed by nausea and vomiting. He presents because of persistent pain. [facility] and had a negative Covid test. He complains of fever and chills subjectively. He feels he is dehydrated. He reports dry tongue and buccal mucosa. He does report thirstiness. He reports being lightheaded with standing. Prior similar symptoms: Yes Recent Illness/Hospitalization: No PFSH PFS Medical History History of ileus Home Medications aspirin 81 mg PO DAILY@0800 05/29/15 [History Last Taken 07/09/19] atorvastatin 10 mg PO DAILY 05/29/15 [History Last Taken 07/09/19] diltiazem HCl 240 mg PO DAILY 05/29/15 [History Last Taken 07/09/19] lisinopril 10 mg PO DAILY 10/08/17 [History Last Taken 07/09/19] tadalafil [Cialis] 5 mg PO QHS 10/08/17 [History Last Taken 07/08/19] vitamin B complex 1 ea PO DAILY 07/09/19 [History Last Taken 07/08/19] dicyclomine 20 mg PO TIDAC #20 capsule 04/05/21 [Rx Last Taken Unknown] ondansetron 4 mg PO Q8H PRN PRN #10 tab 04/05/21 [Rx Last Taken Unknown] Allergy/AdvReac Type Severity Reaction Status Date / Time adhesive tape Allergy Rash Verified 04/05/21 20:08 iodine Allergy Rash Verified 04/05/21 20:08 Surgical History H/O prostatectomy Social History (Updated 04/05/21 @ 21:[address] Ki Hernandez MD) household members: spouse housing: house Smoking Status: Never smoker alcohol intake: current alcohol intake frequency: other substance use type: does not use ROS ROS ED Constitutional Constitutional ED: Reports chills, fever(s) and subjective; Denies sweats or weight loss ENT ENT ED: Denies ear pain, rhinorrhea or sore throat Cardiovascular Cardiovascular: Denies chest pain or palpitations Respiratory/Chest Respiratory/Chest: Denies cough, dyspnea or dyspnea on exertion Gastrointestinal Gastrointestinal: Reports abdominal pain, diarrhea, nausea and vomiting Genitourinary Genitourinary ED: Denies dysuria, hematuria or urinary frequency Musculoskeletal Musculoskeletal: Denies arthralgias, myalgias or neck pain Integumentary Denies rash Neurologic Neurologic: Reports weakness; Denies headache(s) or paresthesias Hematologic/Lymphatic Hematologic/Lymphatic: Denies easy bleeding or easy bruising EXAM Physical Exam Const Vital Signs: 04/05/21 20:05 04/05/21 20:14 04/05/21 22:45 Temperature 98.3 F Temperature Source Temporal Pulse Rate 95 Respiratory Rate 18 16 Respiratory Effort Normal Blood Pressure 134/91 H Blood Pressure Mean 105 Pulse Ox 99 Oxygen Delivery Method Room Air Positive well nourished and well developed General Appearance ED: well developed and other Patient appears ill and is pale. HEENT Reports TM's clear and dry mucous membranes normocephalic and atraumatic Tympanic Membrane ED: Yes TM's clear Mouth ED: Yes dry mucous membranes Mouth: dry mucous membranes Eyes PERRL and EOMs intact bilaterally General Eye ED: Negative for pale conjunctiva or scleral icterus Neck no lymphadenopathy, supple and no JVD Resp normal respiratory effort and clear to auscultation bilaterally Cardio regular rate, regular rhythm, S1 normal heart sound, S2 normal heart sound and no murmurs GI non-tender, non-distended and no masses Auscultation: normoactive bowel sounds Palpation: soft Back/Spine no CVA tenderness Cervical Spine: Negative for cervical spine tenderness Extremity full ROM General Extremety ED: Yes edema General Extremity: edema Neuro CN's II-XII intact bilaterally Sensorium / Orientation: alert and oriented to person Motor Exam: strength 5/5 throughout Psych mental status grossly normal and thought process normal Skin no wounds Lesions: no lesions Rashes: no rashes MDM MDM MDM Narrative Medical decision making narrative: IV fluids were ordered. Zofran for the nausea and vomiting. CBC to assess white count and H&H. Basic metabolic panel to assess BUN to creatinine ratio and renal function as well as electrolytes specifically potassium. Lab Data Attestation: I reviewed the patient's lab results. Lab results narrative: CBC and H&H is unremarkable. BUN to creatinine ratio is slightly elevated at 25-1. Glucose is elevated 157. Labs: Laboratory Results - last 24 hr 04/05/21 04/05/21 20:37 20:37 WBC 11.0 RBC 4.82 Hgb 14.5 Hct 42.6 MCV 88.4 MCH 30.1 MCHC 34.0 RDW Std Deviation 39.8 RDW Coeff of Terence 12.3 Plt Count 336 MPV 9.8 Immature Gran % (Auto) 0.500 Neut % (Auto) 90.3 H Lymph % (Auto) 5.5 L [place] % (Auto) 3.4 Eos % (Auto) 0.0 Baso % (Auto) 0.3 Absolute Neuts (auto) 10.0 H Absolute Lymphs (auto) 0.61 L Nucleated RBC % 0 Sodium 136 Potassium 4.2 Chloride 102 Carbon Dioxide 27.0 Anion Gap 7 BUN 24 H Creatinine 0.97 Estim Creat Clear Calc 80.31 Est GFR (MDRD) Af Amer 102 Est GFR (MDRD) Non-Af 85 BUN/Creatinine Ratio 24.8 H Glucose 157 H Calcium 10.3 H Treatment and Re-Evaluation Comments:: Patient was reassessed. He was awakened from sleep. He states he feels better. Receive Bentyl prior to discharge. He was given a prescription for Zofran and Bentyl. Discharge Plan Triage Chief Complaint: Abd Pain ED Provider: Ki Hernandez Dx/Rx/DC Orders Clinical Impression: Combined abdominal pain, vomiting, and diarrhea, Acute prerenal azotemia Instructions: ED Gastroenteritis, Viral (Adult) Prescriptions: New ondansetron [ondansetron] 4 MG tablet 4 mg PO Q8H PRN PRN (Reason: Nausea) Qty: 10 RF: 0 dicyclomine 10 MG capsule 20 mg PO TIDAC Qty: 20 RF: 0 No Action atorvastatin 10 MG tablet 10 mg PO DAILY RF: 0 diltiazem HCl 240 MG capsule 240 mg PO DAILY RF: 0 aspirin 325 MG tablet 81 mg PO DAILY@0800 RF: 0 lisinopril 10 MG tablet 10 mg PO DAILY RF: 0 tadalafil [Cialis] 5 MG tablet 5 mg PO QHS RF: 0 vitamin B complex 1 EACH tablet 1 ea PO DAILY RF: 0 Primary Care Provider: Lissy Mcmanus Referrals: Lissy Mcmanus, [Primary Care Provider] - 3-5 Days if not improving Disposition Disposition: Home, Self Care
[2021-04-05 22:45] VITALS: RESP 16
[2021-04-05] MEDS: Dicyclomine 10 MG Capsule 20 MG PO (23:05)
[2021-04-05 23:08] VITALS: BP 141/76; PULSE 78; RESP 16; O2SAT 95
== END 2021-04-05 23:53 | disposition home or self-care (01) ==
PROVIDERS: Emergency Provider Emergency Medicine; PCP Internal Medicine
DX: R10.31 Right lower quadrant pain (principal); R10.32 Left lower quadrant pain; R19.7 Diarrhea, unspecified; R11.2 Nausea with vomiting, unspecified; R79.89 Other specified abnormal findings of blood chemistry; I10 Essential (primary) hypertension; Z79.82 Long term (current) use of aspirin; Z79.899 Other long term (current) drug therapy
CPT/HCPCS: 80048; 85025; 96361; 96374; 99284; J7030; J2405

== ENCOUNTER 2021-04-29 07:00 | Outpatient (RCR) | payer OTHER, SELFPAY ==
--- NOTE | 2021-03-21 20:13 | HP.PTEVAL ---
Patient's Visit Information NELLIE LOPEZ is a 60 year old M referred to Physical Therapy by EDGAR SILVEIRA with a diagnosis of Lumbar DDD. Date of Evaluation: 03/21/21 Physical Therapist: Christopher Elias, DPT, OCS, CSCS - Visit Plan Frequency: 2x /Week Duration: 4-6 Weeks Plan: 2x/week for 4-6 weeks for...\. 1. LB ROM increassing aggressivnesss focussing flexion and rotation but ending with ext. 2. teach quad, hip flexor and HS stretches. 3. Core strengthening exes to I and consistency. 4. Please do TENS and MH each viist and will consider Home TENS unit depending on relief./ - Subjective Got through a rough spot with LBP in December, Came back for no apparent reason. Falred up in 2006, 2013 adn now 2020. Nothing specific happened thi8s time. This flare was moderate intensity similar to 2013 not as bad as 2006. Took antiinflammtory and back bends and started pointer dogs and Supermans, and bugs. Sleep was interrupted, stillintermittently. 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 Saw personalization specialist and will have EMG and MRI of LB next month. Basic ADLs done at home. Hobbies: not much, very busy. Very careful with floor work and squatting vs bending. Borrowed buddies TENS unit which helps. - Pain LBP Pain Intensity (Out of 10): 0 Pain Intensity Range: 0, 2 - Objective Walks slow but normal. Hesitant to bedn [place] and very conscious of LB position. reflexes 2/3 patella and achilles. Sensation LE WNL to gross light touch. quad, hip flexors and HS mod tight. LB AROM ext min limited with slight discomfort central. flexiona dn SB are mod limited without pain. Strength LE hip ext adn abd 4- , others 4 without pain. Core strength 4- no pain. - SLR, - slump test - Goals Goal 1:: I approp LB ROM and Leg stretching and core strengthening exercises consistently without pain. Goal Time Frame: 2-4 Weeks Goal 2:: Pain 0-1/10 at all times and only in LB Goal Time Frame: 4-6 Weeks Goal 3:: Pt feel back to 100% normal premorbid recent back flare up Goal Time Frame: 4-6 Weeks Goal 4:: Sleep without interruption one week Goal Time Frame: 4-6 Weeks - Rehabilitation Potential Physical Therapy Diagnosis: LBP with some painful limitations Rehabilitation Potential: Fair - Anticipated Interventions Patient/Client Instruction: Educate patient on: Condition, Plan of Care For the Purpose of:: To decrease pain, To improve muscle performance and motor function, To increase tolerance to activity/condition/position, To improve ability of physical actions for home/community/work/leisure Therapeutic Exercise to Include: Strength training, Postural training, Flexibilty training, Passive ROM, Active ROM, Dynamic Lumbar Stabilization For the Purpose of:: To decrease pain, To increase ROM, To improve muscle performance and motor function, To increase tolerance to activity/condition/position, To improve ability of physical actions for home/community/work/leisure Manual Therapy Techniques to Include: Passive ROM, Soft tissue mobilization For the Purpose of:: To increase ROM, To improve nutrient delivery to tissue TENS: Yes Thermo therapy (hot pack): Yes For the Purpose of:: To decrease pain Thank you for the opportunity to evaluate your patient. For Medicare and Medicare HMO plans, please review the plan of care and approve it. It will need to be FAXED BACK to us at [phone] for Medicare purposes. For Medicare only, by signing this I certify the plan of care. Please let me know if there are questions or concerns regarding this plan of care. Physician Signature: Date:
--- NOTE | 2021-07-05 11:57 | HP.PT.NRP ---
NELLIE LOPEZ was seen in my office for initial evaluation on 03/21/21. The following Plan of Care was established for this patient: Initial Frequency: 2x /Week Initial Duration: 4-6 Weeks Patient/Client Instruction: Educate patient on: Condition, Plan of Care For the Purpose of:: To decrease pain, To improve muscle performance and motor function, To increase tolerance to activity/condition/position, To improve ability of physical actions for home/community/work/leisure Therapeutic Exercise to Include: Strength training, Postural training, Flexibilty training, Passive ROM, Active ROM, Dynamic Lumbar Stabilization For the Purpose of:: To decrease pain, To increase ROM, To improve muscle performance and motor function, To increase tolerance to activity/condition/position, To improve ability of physical actions for home/community/work/leisure Manual Therapy Techniques to Include: Passive ROM, Soft tissue mobilization For the Purpose of:: To increase ROM, To improve nutrient delivery to tissue TENS: Yes Thermo therapy (hot pack): Yes For the Purpose of:: To decrease pain This patient was last seen in our office 04/29/21. Pertinent comments regarding their Physical therapy will appear below: Pt seen 6 visits of POC adn was 50% better. he was to f/u after his vacation but has not returned on the schedule. As he was I with appropriate ex to continue his progress, I will discontinue him from PT at this time. At this point I will be discontinuing this patient from physical therapy. I would be happy to see this patient again in the future if found appropriate by the physician. Thank you! Christopher Elias, DPT, OCS, CSCS
--- NOTE | 2021-07-12 12:47 | HP.PTDCSUM_ITS ---
It has been my pleasure to treat NELLIE LOPEZ referred by EDGAR ATKINSON, with the diagnosis of Lumbar DDD for a total of 6 visit(s). Discharge Date: Please see the following information for a summary of their discharge status. Subjective: Last entry in April: Has been doing OK. Doing exercises reciprocally but daily. PPU daily. Some days less sore than others. R side still more bothersome than L. Always has some low level of something in low back 2/10. 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 [place] certain ways and it can still bothersome. Had EMG and MRI at [facility] and EMG did not show anything obvious. MRI showed some disc related issue at T1and L5S1. insurance marketing specialist wanted to keep going with PT and reassess in June. Company called and for TENS and not covered as it is an experimental device. Still very careful with how he bends and lifts. L anterior thigh pain seems mechanical as it clears up with position changes for the most part. 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 Will be on vacation for next two weeks. LBP Pain Intensity (Out of 10): 2 % Improvement: 50 Objective/Function: Last entry in April:Ext ROM much improved today and even moreso after PA ext mobs to spine. Flexion slowly improving and much more onfident and willing, rotation B still very tight. Walking normal. Overall slightly slowly better subjective and more manageable but still constant 2/10 pain and intermittent L leg symptoms which spine doctor wants more therapy and no other appropriate options outside of PT at this time. appropriate to continue therapy with below plan with fair prognosis. Goal 1:: I approp LB ROM and Leg stretching and core strengthening exercises consistently without pain. Goal Progress: Goal Met Goal 2:: Pain 0-1/10 at all times and only in LB Goal Progress: still up to 2, approp. 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 he has contacted me stating that he had video f/u with Dr Atkinson. His back discomfort continues particularly standing in the laboratory analyst. Doctor wanted him to continue using TENS and his HEP. He will f/u again with doctor in August. at this point, with the patient having his own TENs and managing with his home exercise program. I have suggested that he continue his HEP as I do not have alot more to offer him at this point. he will call if he has any questions. I will discharge him at this time. If there are questions or concerns regarding this patient's physical therapy, please feel free to call me at [phone]. Thank you for the referral of this patient. Sincerely, Christopher Elias, DPT, OCS, CSCS
== END 2021-04-29 19:00 | disposition home or self-care (01) ==
LOC: PT 07:00
PROVIDERS: PCP Internal Medicine
DX: M47.26 Other spondylosis with radiculopathy, lumbar region (principal); G89.29 Other chronic pain; M51.16 Intervertebral disc disorders with radiculopathy, lumbar region
CPT/HCPCS: 97014; 97110; 97161; 97530; G0283

== ENCOUNTER → 2021-07-01 08:37 | Outpatient (CLI) | payer OTHER, SELFPAY ==
[2021-07-01 09:00] LABS: Absolute Lymphocyte Count 1.49 X10^3/uL (0.83-4.51); Absolute Neutrophil Count 3.1 X10^3/uL (2.0-7.7); Basophil# 0.03 X10^3/uL; Basophil% 0.6 % (0-1); Eosinophil# 0.06 X10^3/uL; Eosinophils% 1.1 % (0-5); Hematocrit 40.5 % (40-54); Hemoglobin 13.9 g/dL (13.0-16.5); Lymphocyte # 1.49 X10^3/ul (0.83-4.51); Lymphocyte % 27.9 % (19-41); Mean Corp Hgb Conc 34.3 g/dL (32-36); Mean Corpuscular Hgb 29.8 pg (27.0-32.0); Mean Corpuscular Volume 86.9 fL (80-94); Mean Platelet Vol. 9.7 fl (6.2-12.0); Monocyte# 0.64 X10^3/uL; NRBC Flagged by Analyzer 0 % (0-5); Neutrophil # 3.11 X10^3/uL (2.7-7.7); Neutrophil % 58.2 % (47-70); Platelet Count 300 K/mm3 (150-450); RBC Distribution Width CV 12.5 % (11.6-14.6); RBC Distribution Width SD 39.2 fl (35.1-43.9); Red Blood Count 4.66 M/mm3 (4.6-6.2); White Blood Count 5.3 K/mm3 (4.4-11.0)
[2021-07-01 09:05] LABS: Color, Urine Yellow (Yellow); Glucose, Dipstick Normal (Normal); Ketone-Dipstick Negative (Negative); Leukocyte Esterase-Dipstick 25 /ul (Negative); Nitrite-Dipstick Negative (Negative); Occult Blood-Urine 10 /ul (Negative); Protein-Dipstick 15 mg/dl (Negative); Urine Bilirubin Dipstick Negative (Negative); Urine Clarity Clear (Clear); Urine Urobilinogen Normal (Normal)
[2021-07-01 09:22] LABS: Microalbumin,Random Urine 28.3 mg/L (NO RANGE EST.)
[2021-07-01 09:44] LABS: ALB/GLOB Ratio 1.2 RATIO (0.9-2.4); AST(SGOT) 19 U/L (15-37); Alanine Aminotransfer ALT/SGPT 36 U/L (16-61); Albumin, Serum 4.1 g/dL (3.2-5.0); Alkaline Phosphatase 74 U/L (45-117); Anion Gap 5 (5-15); BUN 20 mg/dL (7-18); BUN/Creat Ratio 23.9 RATIO (10-20); Chloride 107 mmol/L (98-107); Cholesterol 136 mg/dL (200); Creatinine, Serum 0.84 mg/dL (0.70-1.30); EST Glomerular Filtration Rate 100 mL/min (>60); Est Glom Filt Rate - Afr Amer 121 mL/min (>60); Globulin 3.5 g/dL (2.2-4.2); Glucose 121 mg/dL (74-106); High Density Lipoprotein 52 mg/dL; Protein, Total 7.6 g/dL (6.4-8.2); Sodium Level 139 mmol/L (136-145); Triglycerides 94 mg/dL; Very Low Density Lipoprotein 19 mg/dL (5-40)
[2021-07-01 09:49] LABS: Vitamin B12 515 pg/mL (211-911)
[2021-07-02 09:33] LABS: Hemoglobin A1c 5.3 % (3.8-5.6)
== END ==
PROVIDERS: PCP Internal Medicine; Referring Provider Internal Medicine; Visit Provider Internal Medicine
DX: E53.8 Deficiency of other specified B group vitamins (principal); E78.49 Other hyperlipidemia; R31.9 Hematuria, unspecified; R73.9 Hyperglycemia, unspecified
CPT/HCPCS: 36415; 80053; 80061; 81002; 82043; 82570; 82607; 83036; 85025

== ENCOUNTER 2021-10-26 10:37 | Outpatient (CLI) | payer OTHER, SELFPAY ==
[2021-10-26 11:50] LABS: Glucose 88 mg/dL (74-106)
== END 2021-10-26 23:59 | disposition home or self-care (01) ==
PROVIDERS: PCP Internal Medicine; Referring Provider Internal Medicine; Visit Provider Internal Medicine
DX: R73.9 Hyperglycemia, unspecified (principal)
CPT/HCPCS: 36415; 82947

== ENCOUNTER → 2022-01-25 | Outpatient (CLI) | payer OTHER, SELFPAY ==
[2022-01-25 08:28] LABS: Absolute Lymphocyte Count 1.65 X10^3/uL (0.83-4.51); Absolute Neutrophil Count 3.2 X10^3/uL (2.0-7.7); Basophil# 0.02 X10^3/uL; Basophil% 0.4 % (0-1); Eosinophil# 0.05 X10^3/uL; Eosinophils% 0.9 % (0-5); Hematocrit 43.5 % (40-54); Hemoglobin 14.6 g/dL (13.0-16.5); Lymphocyte # 1.65 X10^3/ul (0.83-4.51); Lymphocyte % 29.7 % (19-41); Mean Corp Hgb Conc 33.6 g/dL (32-36); Mean Corpuscular Hgb 29.9 pg (27.0-32.0); Mean Platelet Vol. 9.7 fl (6.2-12.0); Monocyte# 0.67 X10^3/uL; Monocyte% 12.1 % (0-10); NRBC Flagged by Analyzer 0 % (0-5); Neutrophil # 3.15 X10^3/uL (2.7-7.7); Neutrophil % 56.5 % (47-70); Platelet Count 296 K/mm3 (150-450); RBC Distribution Width CV 12.2 % (11.6-14.6); RBC Distribution Width SD 40.2 fl (35.1-43.9); Red Blood Count 4.89 M/mm3 (4.6-6.2); White Blood Count 5.6 K/mm3 (4.4-11.0)
[2022-01-25 08:31] LABS: Color, Urine Yellow (Yellow); Glucose, Dipstick Normal (Normal); Ketone-Dipstick Negative (Negative); Leukocyte Esterase-Dipstick Negative /ul (Negative); Nitrite-Dipstick Negative (Negative); Occult Blood-Urine Negative /ul (Negative); Protein-Dipstick Negative (Negative); Urine Bilirubin Dipstick Negative (Negative); Urine Clarity Clear (Clear); Urine Urobilinogen Normal (Normal); Urine pH 6.5 (5.0 - 8.0)
[2022-01-25 09:04] LABS: ALB/GLOB Ratio 1.2 RATIO (0.9-2.4); AST(SGOT) 20 U/L (15-37); Alanine Aminotransfer ALT/SGPT 26 U/L (16-61); Albumin, Serum 4.1 g/dL (3.2-5.0); Alkaline Phosphatase 63 U/L (45-117); Anion Gap 8 (5-15); BUN 17 mg/dL (7-18); BUN/Creat Ratio 20.7 RATIO (10-20); Calcium,Total 9.1 mg/dL (8.5-10.1); Chloride 103 mmol/L (98-107); Cholesterol 131 mg/dL (200); Creatinine, Serum 0.82 mg/dL (0.70-1.30); EST Glomerular Filtration Rate 102 mL/min (>60); Est Glom Filt Rate - Afr Amer 123 mL/min (>60); Globulin 3.3 g/dL (2.2-4.2); Glucose 104 mg/dL (74-106); High Density Lipoprotein 46 mg/dL; Potassium 4.3 mmol/L (3.5-5.1); Protein, Total 7.4 g/dL (6.4-8.2); Sodium Level 137 mmol/L (136-145); Thyroid Stim Hormone (TSH) 2.18 uIU/mL (0.358-3.74); Triglycerides 122 mg/dL; Very Low Density Lipoprotein 24 mg/dL (5-40)
[2022-01-25 09:05] LABS: Microalbumin,Random Urine 5.2 mg/L (NO RANGE EST.); Microalbumin:Creatinine Ratio 6.2 mg/g CRE (<30 mg/g CRE)
[2022-01-25 09:14] LABS: Hemoglobin A1c 5.3 % (3.8-5.6)
[2022-01-26 00:30] LABS: PSA,Total- Diagnostic < 0.01 ng/mL (0.0-4.0)
[2022-01-27 08:59] LABS: Vitamin B12 495 pg/mL (211-911)
== END | disposition home or self-care (01) ==
PROVIDERS: PCP Internal Medicine; Referring Provider Internal Medicine; Visit Provider Internal Medicine
DX: R31.9 Hematuria, unspecified (principal); C61 Malignant neoplasm of prostate; E78.49 Other hyperlipidemia; E73.9 Lactose intolerance, unspecified; R73.9 Hyperglycemia, unspecified
CPT/HCPCS: 36415; 80053; 80061; 81002; 82043; 82570; 82607; 83036; 84153; 84443; 85025

== ENCOUNTER → 2022-07-07 | Outpatient (CLI) | payer OTHER, SELFPAY ==
[2022-07-07 08:05] LABS: Absolute Lymphocyte Count 1.47 X10^3/uL (0.83-4.51); Absolute Neutrophil Count 2.9 X10^3/uL (2.0-7.7); Basophil# 0.02 X10^3/uL; Basophil% 0.4 % (0-1); Color, Urine Yellow (Yellow); Eosinophil# 0.05 X10^3/uL; Glucose, Dipstick Normal (Normal); Hematocrit 42.5 % (40-54); Hemoglobin 14.1 g/dL (13.0-16.5); Ketone-Dipstick Negative (Negative); Leukocyte Esterase-Dipstick Negative /ul (Negative); Lymphocyte # 1.47 X10^3/ul (0.83-4.51); Lymphocyte % 28.9 % (19-41); Mean Corp Hgb Conc 33.2 g/dL (32-36); Mean Corpuscular Hgb 29.9 pg (27.0-32.0); Mean Platelet Vol. 9.6 fl (6.2-12.0); Monocyte% 11.8 % (0-10); NRBC Flagged by Analyzer 0 % (0-5); Neutrophil # 2.94 X10^3/uL (2.7-7.7); Neutrophil % 57.7 % (47-70); Nitrite-Dipstick Negative (Negative); Occult Blood-Urine 50 /ul (Negative); Platelet Count 265 K/mm3 (150-450); Protein-Dipstick Negative (Negative); RBC Distribution Width CV 12.2 % (11.6-14.6); RBC Distribution Width SD 39.7 fl (35.1-43.9); Red Blood Count 4.72 M/mm3 (4.6-6.2); Specific Gravity, Urine 1.025 (1.002-1.030); Urine Bilirubin Dipstick Negative (Negative); Urine Clarity Clear (Clear); Urine Urobilinogen Normal (Normal); White Blood Count 5.1 K/mm3 (4.4-11.0)
[2022-07-07 08:18] LABS: Hemoglobin A1c 5.5 % (3.8-5.6); Microalbumin,Random Urine 18.9 mg/L (NO RANGE EST.); Microalbumin:Creatinine Ratio 8.3 mg/g CRE (<30 mg/g CRE)
[2022-07-07 08:49] LABS: ALB/GLOB Ratio 1.4 RATIO (0.9-2.4); AST(SGOT) 18 U/L (15-37); Alanine Aminotransfer ALT/SGPT 26 U/L (16-61); Albumin, Serum 4.3 g/dL (3.2-5.0); Alkaline Phosphatase 70 U/L (45-117); Anion Gap 3 (5-15); BUN 20 mg/dL (7-18); BUN/Creat Ratio 24.1 RATIO (10-20); Calcium,Total 9.3 mg/dL (8.5-10.1); Chloride 106 mmol/L (98-107); Creatinine, Serum 0.83 mg/dL (0.70-1.30); EST Glomerular Filtration Rate 100 mL/min (>60); Est Glom Filt Rate - Afr Amer 122 mL/min (>60); Globulin 3.1 g/dL (2.2-4.2); Glucose 108 mg/dL (74-106); Potassium 4.2 mmol/L (3.5-5.1); Protein, Total 7.4 g/dL (6.4-8.2); Sodium Level 138 mmol/L (136-145); Thyroid Stim Hormone (TSH) 2.56 uIU/mL (0.358-3.74)
[2022-07-07 09:53] LABS: Vitamin B12 534 pg/mL (211-911)
[2022-07-07 11:57] LABS: Cholesterol 144 mg/dL (200); High Density Lipoprotein 55 mg/dL; Triglycerides 112 mg/dL; Very Low Density Lipoprotein 22 mg/dL (5-40)
== END | disposition home or self-care (01) ==
LOC: LAB.FUTURE 07:09 → LAB 07:12
PROVIDERS: PCP Internal Medicine; Referring Provider Internal Medicine; Visit Provider Internal Medicine
DX: R31.9 Hematuria, unspecified (principal); R73.9 Hyperglycemia, unspecified; E78.49 Other hyperlipidemia
CPT/HCPCS: 36415; 80053; 80061; 81002; 82043; 82570; 82607; 83036; 84443; 85025

== ENCOUNTER → 2022-09-01 | Outpatient (CLI) | payer OTHER, SELFPAY ==
--- NOTE | 2022-09-01 12:40 | RAD_ITS ---
STUDY: X-RAY CHEST REASON FOR EXAM: Male, 62 years old. Cough. TECHNIQUE: Frontal and lateral views of the chest. COMPARISON: October 10, 2017. FINDINGS: Stable mild hyperinflation. There is no demonstrated pleural abnormality. Borderline cardiomegaly. Normal mediastinum and vinod. Normal visualized pulmonary arteries. Mild aortic tortuosity. Normal visualized thoracic spine. Normal visualized ribs, clavicles, and shoulders. There is no demonstrated abnormality of the visualized soft tissue structures of the upper abdomen. RAD/Chest PA and Lateral IMPRESSION: No interval change and no acute or active cardiopulmonary disease. Electronically Signed: Anup Franco, at 13:23 EST ,
[2022-09-01 15:21] LABS: Absolute Neutrophil Count 3.2 X10^3/uL (2.0-7.7); Basophil# 0.03 X10^3/uL; Basophil% 0.5 % (0-1); Eosinophil# 0.08 X10^3/uL; Eosinophils% 1.3 % (0-5); Hematocrit 39.1 % (40-54); Lymphocyte % 33.8 % (19-41); Mean Corp Hgb Conc 33.2 g/dL (32-36); Mean Corpuscular Hgb 29.9 pg (27.0-32.0); Mean Corpuscular Volume 89.9 fL (80-94); Mean Platelet Vol. 9.5 fl (6.2-12.0); Monocyte# 0.75 X10^3/uL; Monocyte% 12.1 % (0-10); NRBC Flagged by Analyzer 0 % (0-5); Neutrophil # 3.18 X10^3/uL (2.7-7.7); Platelet Count 335 K/mm3 (150-450); RBC Distribution Width CV 12.3 % (11.6-14.6); RBC Distribution Width SD 40.1 fl (35.1-43.9); Red Blood Count 4.35 M/mm3 (4.6-6.2); White Blood Count 6.2 K/mm3 (4.4-11.0)
== END | disposition home or self-care (01) ==
PROVIDERS: PCP Internal Medicine; Referring Provider Internal Medicine; Visit Provider Internal Medicine
DX: R09.89 Other specified symptoms and signs involving the circulatory and respiratory systems (principal); R05.9 Cough, unspecified
CPT/HCPCS: 36415; 71046; 85025